=== PATIENT | female | born 1975 | race Caucasian/White ===

== ENCOUNTER 2019-09-16 12:44 | Outpatient (CLI) | payer OTHER, SELFPAY ==
--- NOTE | ~2019-09-16 | MMUS_ITS ---
EXAMINATION: MM diagnostic ismael LT w dashawn, US breast LT limited HISTORY: Palpable lump in the upper outer quadrant of the left breast TECHNIQUE: Craniocaudal, mediolateral, and mediolateral oblique 3-D tomosynthesis images of the left breast were performed and synthetic 2-D images were generated. Spot compression images are also obtai breann. CAD analysis was submitted and interpreted. High resolution limited left breast ultrasound was p erformed. COMPARISON: 01/08/2019, 11/17/2017, 08/31/2016 BREAST PARENCHYMAL COMPOSITION: The breasts are almost entirely fatty. FINDINGS: MAMMOGRAPHIC FINDINGS: There is no evidence of suspicious mass, calcification, or architectural distortion to suggest malig rafael. No mammographic correlate is identified for the reported palpable abnormality. ULTRASOUND: There is no evidence of focal abnormal solid or cystic lesion in the vicinity of the reported palpabl e abnormality of concern. IMPRESSION: 1. No specific mammographic or sonographic correlate is identified for the reported palpable abnormal ity of concern. Further evaluation at this time should be based on clinical assessment. Continued fol low-up physical examination is recommended. 2. Routine screening mammography is recommended, due in December. BI-RADS Category 1: Negative Reviewed, dictated and finalized at location A. IMPRESSION: 1. No specific mammographic or sonographic correlate is identified for the repo rted palpable abnormality of concern. Further evaluation at this time should be based on clinical assessment. Continued follow-up physical examination is elli mmended. 2. Routine screening mammography is recommended, due in December. BI-RADS Category 1: Negative
== END 2019-09-16 12:45 | disposition home or self-care (01) ==
PROVIDERS: PCP Family Medicine; Visit Provider Student in an Organized Health Care Education/Training Program
DX: N63.20 Unspecified lump in the left breast, unspecified quadrant (principal); R92.2 Inconclusive mammogram
CPT/HCPCS: 76642; 77061; 77065; G0279

== ENCOUNTER 2019-10-22 07:47 | Emergency (ER) | payer OTHER, SELFPAY ==
--- NOTE | ~2019-10-22 | CT_ITS ---
EXAMINATION: CT abdomen pelvis wo con DATE: 10/22/2019 08:21 INDICATION: Right flank pain. TECHNIQUE: Computed tomography (CT) of the abdomen and pelvis was performed without intravenous contr ast. Automated exposure control and iterative reconstruction technique were employed. The dose-length product was 954.66 mGy-cm. COMPARISON: CT abdomen and pelvis 04/05/2017 FINDINGS: The visualized portions of the lung bases demonstrate mild atelectasis. No pleural effusion . The heart size is normal. No pericardial effusion. The liver, gallbladder, spleen, pancreas, and ad renal glands are normal. There is mild right hydronephrosis and hydroureter. There is a 4 mm stone in distal right ureter. Left kidney is normal. There are no dilated loops of bowel. The appendix is nor mal. There are no pathologically enlarged lymph nodes. There is no free intraperitoneal fluid. There is mild lumbar spondylosis. IMPRESSION: 1. 4 mm stone in distal right ureter with mild right hydronephrosis and hydroureter. Reviewed, dictated and finalized at location A. IMPRESSION: 1. 4 mm stone in distal right ureter with mild right hydronephrosis and hydrour eter.
--- NOTE | ~2019-10-22 | XR_ITS ---
XR abdomen/kub 1V DATE: 10/22/2019 08:46 INDICATION: Right flank pain, nausea. Kidney stone. TECHNIQUE: AP projection, 2 views COMPARISON: 10/22/[address] abdomen pelvis FINDINGS: A small faint calcification overlies the right distal ureter/ureterovesical junction area, consistent with 10/22/2019 CT-documented distal right ureteral calculus. No other urinary tract calcif ications are detected. The psoas shadows are intact. No visceromegaly is evident. No evidence of bowel obstruction. The lung bases are clear. Normal heart size. IMPRESSION: Distal right ureteral faintly calcified calculus Reviewed, dictated and finalized at Location A. Reviewed, dictated and finalized at location B.
[2019-10-22 07:51] VITALS: BP 150/100; PULSE 74; RESP 18; TEMP 36.1; O2SAT 99
--- NOTE | 2019-10-22 08:01 | ED.ABDPAIN ---
HPI - Abdominal Pain General Chief Complaint: Abdominal Pain Stated Complaint: poss kidney stone Time Seen by Provider: 10/22/19 07:52 Source: RN notes reviewed History of Present Illness HPI narrative: Patient presents emergency department from home for abdominal pain. Patient states symptoms began approximately 1 hour ago. The pain is located in the right flank and radiates into the right abdomen. Described as sharp and stabbing. Patient states is associated with nausea as well as difficulty with urinating. She denies any fevers or chills chest pain, shortness of breath vomiting diarrhea or any other symptoms. States she took no previous pain medication for the symptoms. Related Data Home Medications Medication Instructions Recorded Confirmed albuterol sulfate 90 mcg/actuation 2 inhalation INHALATION Q4-6H PRN 08/31/19 breath activated powder inhaler diphenhydramine HCl 25 mg capsule See Rx Instructions PO TID PRN cap 08/31/19 escitalopram oxalate 10 mg tablet 10 mg PO DAILY 08/31/19 ibuprofen 800 mg tablet 800 mg PO TID 08/31/19 melatonin 5 mg capsule mg PO 08/31/19 pseudoephedrine HCl 30 mg tablet 60 mg PO Q4-6H PRN tablet 08/31/19 tretinoin 0.01 % topical gel 1 applic TOPICAL ONCE 08/31/19 Allergies Allergy/AdvReac Type Severity Reaction Status Date / Time adhesive Allergy Unknown Rash Verified 10/22/19 07:57 egg Allergy Unknown Itching Verified 10/22/19 07:57 mold Allergy Unknown Other Verified 10/22/19 07:57 Review of Systems Review of Systems: Narrative: Gen.: Denies fevers or chills ENT: Denies congestion Respiratory: Denies shortness of breath or cough CV: Denies chest pain or palpitations GI: See HPI reports difficulty with urinating Musculoskeletal: Denies back pain or muscle pain Neuro: Denies numbness, tingling, weakness or focal weakness Skin: Denies rash Except as documented, all other systems reviewed and negative PMFSH Past Medical History Medical History Asthma Endometriosis Thyroid disease Vaginal delivery x 2 Social History Social History Smoking status: Never smoker Alcohol intake: never Exam Narrative: Exam Narrative: APPEARANCE: No acute distress, nontoxic, resting in bed HEENT: Normocephalic, atraumatic, OMM RESPIRATORY: No respiratory distress, clear to auscultation bilaterally with no rhonchi wheezing or rales CARDIOVASCULAR: RRR s murmur ABDOMINAL: Soft, nondistended, tender palpation right upper quadrant right lower quadrant, no tenderness left lower quadrant left lower quadrant, no rebound or guarding, right flank tenderness MUSCULOSKELETAl: Moves all extremities. No clubbing, cyanosis or edema. NEURO: Awake and alert. Following commands, speech normal, no focal deficits SKIN:: Warm, dry. Normal Color PSYCHIATRIC: Normal affect/mood Course Course Emergency Course: Patient that she is feeling better at this time Discussed with patient results of workup and diagnosis. Discussed need for follow-up with primary care, proper use of medication, and reasons to return to the emergency department. Patient understands and agrees to current treatment plan Vital Signs Vital signs: Vital Signs Temperature 97.0 F L 10/22/19 07:51 Pulse Rate 74 10/22/19 07:51 Respiratory Rate 18 10/22/19 07:51 Blood Pressure 150/100 H 10/22/19 07:51 Pulse Oximetry 99 10/22/19 07:51 Temperature 97.0 F L 10/22/19 07:51 Pulse Rate 74 10/22/19 07:51 Respiratory Rate 18 10/22/19 07:51 Blood Pressure 150/100 H 10/22/19 07:51 Pulse Oximetry 99 10/22/19 07:51 MDM - Abdominal Pain MDM Narrative Medical decision making narrative: Patient's abdomen is soft without significant pain or signs of surgical abdomen on serial exams. Lab and x-ray evaluations are reviewed and patient is felt to be a reasonable candidate for outpatient management. Corinne
[2019-10-22] MEDS: SODIUM CHLORIDE 0.9% IV 1,000 ML 999 ML IV CONT (08:06)
[2019-10-22] MEDS: ONDANSETRON INJ 4 MG/2 ML VIAL IV PUSH (08:07)
[2019-10-22 08:20] LABS: Basophils Absolute Auto 0.1 K/mm3 (0.0-0.1); Basophils Percent Auto 0.6 % (0.2-1.2); Eosinophils Absolute Auto 0.2 K/mm3 (0-0.3); Eosinophils Percent Auto 2.2 % (0-4.4); Hemoglobin 12.9 g/dL (12.0-15.0); Immature Granulocyte Absolute 0.03 K/mm3 (0.00-0.031); Immature Granulocyte Percent A 0.3 % (0-0.5); Lymphocytes Absolute Auto 2.27 K/mm3 (0.9-3.2); Lymphocytes Percent Auto 26.4 % (18.3-44.2); Mean Corpuscular HGB Conc 33.1 g/dl (32-36); Mean Corpuscular Hemoglobin 29.5 pg (26-34); Mean Corpuscular Volume 89.2 fl (80-100); Monocytes Absolute Auto 0.6 K/mm3 (0.1-0.6); Monocytes Percent Auto 6.6 % (2.6-8.5); Neutrophils Absolute Auto 5.5 K/mm3 (1.3-6.7); Neutrophils Percent Auto 63.9 % (45.5-73.1); Platelet Count Result 364 k/mm3 (150-375); Red Blood Count 4.37 M/mm3 (4.2-5.4); Red Cell Distribution Width 13.8 % (11.5-14.5); White Blood Count 8.6 K/mm3 (4.5-10.0)
[2019-10-22 08:31] LABS: Alanine Aminotransferase 16 U/L (4-35); Alkaline Phosphatase 96 U/L (38-126); Anion Gap 12.9 mmol/L (7-16); Aspartate Amino Transferase 19 U/L (14-36); Bilirubin,Total 0.8 mg/dL (0.2-1.3); Blood Urea Nitrogen 10 mg/dL (7-17); Calcium 8.6 mg/dL (8.4-10.2); Carbon Dioxide 24 mmol/L (22-30); Chloride 102 mmol/L (98-107); Estimated CRCL calculation 99 ml/min; Estimated Glomerular Filt Rate > 60; Glucose 112 mg/dL (65-105); Lipase 36 U/L (23-300); Potassium 3.9 mmol/L (3.4-5.0); Sodium 135 mmol/L (137-145)
[2019-10-22] MEDS: KETOROLAC 30 MG/ML VIAL (*BKC) IV PUSH (09:35)
[2019-10-22 09:41] LABS: Add Urine Microscopic? YES; Appearance Urine Clear (Clear); Bacteria Urine Trace /hpf; Bilirubin Urine Negative (Negative); Blood Urine 3+ (Negative); Color Urine Yellow (Yellow); Glucose Urine UA Negative (Negative); Ketones Urine Negative (Negative); Leukocyte Esterase Ur Negative LEU/UL (Negative); Mucus Urine Rare /lpf; Nitrate Urine Negative (Negative); Protein Urine Negative (Negative); Specific Grav Ur 1.019 (1.001-1.035); Squamous Epithelial Cell Urine Occasional /hpf (Few); Urobilinogen Urine Negative mg/dL (<2.0); WBC Urine 0-3 /hpf
[2019-10-22] MEDS: TAMSULOSIN HCL 0.4 MG CAPSULE PO (09:55)
[2019-10-22 10:00] VITALS: BP 146/70; PULSE 75; RESP 18; O2SAT 100
== END 2019-10-22 10:04 | disposition home or self-care (01) ==
PROVIDERS: Emergency Provider Emergency Medicine; PCP Family Medicine
DX: N13.2 Hydronephrosis with renal and ureteral calculous obstruction (principal); J45.909 Unspecified asthma, uncomplicated; N80.9 Endometriosis, unspecified; E07.9 Disorder of thyroid, unspecified
CPT/HCPCS: 36415; 74018; 74176; 80053; 81001; 83690; 85025; 96361; 96374; 96375; 99284; A9270; J0131; J1885; J2405; J7030

== ENCOUNTER 2019-11-23 08:41 | Outpatient (CLI) | payer OTHER, SELFPAY ==
--- NOTE | ~2019-11-23 | XR_ITS ---
EXAMINATION: XR abdomen/kub 1V DATE: 11/23/2019 08:59 INDICATION: Right ureteral stone. TECHNIQUE: A supine view of the abdomen on 2 radiographs was obtained. COMPARISON: CT abdomen and pelvis 10/22/2019 FINDINGS: There are no dilated loops of bowel. There are phleboliths in left pelvis. IMPRESSION: 1. No visible urolithiasis. Reviewed, dictated and finalized at location B. IMPRESSION: 1. No visible urolithiasis.
== END 2019-11-23 08:42 | disposition home or self-care (01) ==
PROVIDERS: PCP Family Medicine; Visit Provider Urology
DX: N20.1 Calculus of ureter (principal)
CPT/HCPCS: 74018

== ENCOUNTER 2019-12-14 07:39 | Emergency (ER) | payer OTHER, SELFPAY ==
--- NOTE | ~2019-12-14 | CT_ITS ---
EXAMINATION: CT abdomen pelvis w con EXAM DATE: 12/14/2019 08:38 INDICATION: Abdominal pain, nausea, history of kidney stones. TECHNIQUE: Spiral CT of the abdomen and pelvis was performed following intravenous injection of 100 m L Omnipaque 350. Axial, coronal and sagittal images were reviewed. The dose-length product (DLP) fo r this examination was 971.67 mGy-cm. The exposure was tailored according to patient size (auto mA e xposure control), and iterative reconstruction (ASIR) was used as additional dose reduction technique . Comparison is made to prior examination from 10/22/2019. FINDINGS: The liver, spleen, adrenal glands and pancreas are unremarkable. Gallbladder is unremarkab le. No biliary obstruction. There is a 3 mm stone in the distal aspect of the right ureter, 1 cm fr om the UVJ with mild right hydroureteronephrosis, no perinephric fat stranding. No other nephrolithia sis. Potentially could be the same stone which was present on prior CT scan, if so could be intermitt ently obstructing. The uterus is not identified and has likely been surgically resected. The bladder is unremarkable. There is no retroperitoneal or pelvic lymphadenopathy. The appendix is normal. The stomach and small bowel are unremarkable. There is expected amount of c olonic stool. No free intraperitoneal gas. The heart is normal in size. There are no pericardial or pleural effusions. The lung bases are unremarkable. There are no osteoblastic or osteolytic les ions identified. IMPRESSION: 1. Right distal ureteral 3 mm stone, mild hydroureteronephrosis. Reviewed, dictated and finalized at location A.
[2019-12-14 07:48] VITALS: BP 153/97; PULSE 70; RESP 17; TEMP 36.8; O2SAT 99
--- NOTE | 2019-12-14 07:53 | PC.NURSE ---
Pt unable to void at this time, declined straight cath, would like to try to provide u/a sample after a little while.
--- NOTE | 2019-12-14 08:00 | ED.ABDPAIN ---
HPI - Abdominal Pain General Chief Complaint: Abdominal Pain Stated Complaint: abd pain Time Seen by Provider: 12/14/19 07:45 Source: patient Mode of arrival: ambulatory Limitations: no limitations History of Present Illness HPI narrative: This patient is a 44 year old female who presents for right mid abdominal pain starting 3 hours ago. This pain has been constant and nonradiating. She has associated nausea but no vomiting. She has a history of kidney stones but she reports this feels different. She denies fever or chills. She has not taken anything for pain. Related Data Home Medications Medication Instructions Recorded Confirmed albuterol sulfate 90 mcg/actuation 2 inhalation INHALATION Q4-6H PRN 08/31/19 breath activated powder inhaler diphenhydramine HCl 25 mg capsule See Rx Instructions PO TID PRN cap 08/31/19 ibuprofen 800 mg tablet 800 mg PO TID 08/31/19 melatonin 5 mg capsule mg PO 08/31/19 pseudoephedrine HCl 30 mg tablet 60 mg PO Q4-6H PRN tablet 08/31/19 tretinoin 0.01 % topical gel 1 applic TOPICAL ONCE 08/31/19 Allergies Allergy/AdvReac Type Severity Reaction Status Date / Time adhesive Allergy Unknown Rash Verified 12/14/19 07:40 egg Allergy Unknown Itching Verified 12/14/19 07:40 mold Allergy Unknown Other Verified 12/14/19 07:40 Review of Systems Review of Systems: All systems reviewed & are unremarkable except as noted in HPI and below Constitutional: Constitutional: Denies chills and Denies fever(s) Respiratory: Respiratory: Denies cough and Denies dyspnea Gastrointestinal: Gastrointestinal: Reports abdominal pain, Reports nausea and Denies vomiting [facility] Past Medical History Medical History (Updated 12/14/19 @ 09:27 by Sabina Waldrop MD) Asthma Endometriosis History of nephrolithiasis Thyroid disease Vaginal delivery x 2 Surgical History Surgical History H/O total hysterectomy with bilateral salpingo-oophorectomy (BSO) History of laparoscopy [place] teeth removed Social History Social History Smoking status: Never smoker Alcohol intake: never Gender identity (if verbalized by the patient): Female Exam Const: General: alert Orientation/consciousness: patient oriented x3 HENMT: Head: normocephalic and atraumatic Face and sinus: face symmetric Mouth: Yes Normal oral and palatal mucosa present, Yes lip normal, Yes oropharynx normal and Yes moist mucous membranes Eyes: EOM: EOMs intact bilaterally Resp: Effort & Inspection: normal respiratory effort and no retractions Auscultation: clear to auscultation bilaterally GI: GI Palp: Yes Soft to palpation, No Tenderness to palpation present (GI), No Guarding due to palpation present (GI), No Rigid due to palpation and No Hernia present : General: Yes no CVA tenderness Skin: General skin exam: normal color Rashes: no rashes Neuro: General: patient oriented x3 and moves all extremities Extrem: General: normal to inspection and no pedal edema Course Reevaluation(s) Reevaluation #1: Patient reports her pain has resolved. I discussed CT shows distal stone so maybe passed stone. She denies any other questions or concerns. Date: 12/14/19 Time: 09:25 Vital Signs Vital signs: Vital Signs Temperature 98.2 F 12/14/19 07:48 Pulse Rate 70 12/14/19 07:48 Respiratory Rate 17 12/14/19 07:48 Blood Pressure 153/97 H 12/14/19 07:48 Pulse Oximetry 99 12/14/19 07:48 Temperature 98.2 F 12/14/19 07:48 Pulse Rate 71 12/14/19 09:44 Respiratory Rate 14 12/14/19 09:44 Blood Pressure 129/81 12/14/19 09:44 Pulse Oximetry 100 12/14/19 09:44 MDM - Abdominal Pain Lab Data Attestation: I reviewed the patient's lab results. Result diagrams: 12/14/19 07:58 12/14/19 07:58 Labs: Lab Results 12/14/19 12/14/19 12/14/19 Range/Units
[2019-12-14 08:05] LABS: Basophils Percent Auto 0.4 % (0.2-1.2); Eosinophils Absolute Auto 0.1 K/mm3 (0-0.3); Eosinophils Percent Auto 1.7 % (0-4.4); Hematocrit 43.7 % (37.0-47.0); Hemoglobin 14.4 g/dL (12.0-15.0); Immature Granulocyte Absolute 0.04 K/mm3 (0.00-0.031); Immature Granulocyte Percent A 0.5 % (0-0.5); Lymphocytes Absolute Auto 2.37 K/mm3 (0.9-3.2); Lymphocytes Percent Auto 30.3 % (18.3-44.2); Mean Corpuscular Hemoglobin 29.2 pg (26-34); Mean Corpuscular Volume 88.6 fl (80-100); Mean Platelet Volume 9.9 fl (7.4-10.4); Monocytes Absolute Auto 0.5 K/mm3 (0.1-0.6); Monocytes Percent Auto 6.9 % (2.6-8.5); Neutrophils Absolute Auto 4.7 K/mm3 (1.3-6.7); Neutrophils Percent Auto 60.2 % (45.5-73.1); Platelet Count Result 347 k/mm3 (150-375); Red Blood Count 4.93 M/mm3 (4.2-5.4); Red Cell Distribution Width 13.4 % (11.5-14.5); White Blood Count 7.8 K/mm3 (4.5-10.0)
[2019-12-14 08:16] LABS: Alanine Aminotransferase 17 U/L (4-35); Albumin Level 4.1 g/dL (3.5-5.1); Alkaline Phosphatase 93 U/L (38-126); Anion Gap 9 mmol/L (8-16); Aspartate Amino Transferase 19 U/L (14-36); Bilirubin,Total 0.9 mg/dL (0.2-1.3); Blood Urea Nitrogen 11 mg/dL (7-17); Calcium 8.7 mg/dL (8.4-10.2); Carbon Dioxide 25 mmol/L (22-30); Chloride 104 mmol/L (98-107); Estimated CRCL calculation 88 ml/min; Estimated Glomerular Filt Rate > 60; Glucose 102 mg/dL (65-105); Lipase 30 U/L (23-300); Potassium 3.9 mmol/L (3.4-5.0); Sodium 138 mmol/L (137-145)
[2019-12-14] MEDS: ONDANSETRON INJ 4 MG/2 ML VIAL IV PUSH (08:16)
[2019-12-14] MEDS: LACTATED RINGERS 1,000 ML 999 ML IV CONT (08:17)
--- NOTE | 2019-12-14 08:26 | PC.NURSE ---
pt unable to provide u/a at this time, will try again later
[2019-12-14 08:52] VITALS: BP 118/76; PULSE 85; RESP 15; O2SAT 97
[2019-12-14 08:59] LABS: Add Urine Microscopic? NO; Appearance Urine Clear (Clear); Bilirubin Urine Negative (Negative); Blood Urine Negative (Negative); Color Urine Straw (Yellow); Glucose Urine UA Negative (Negative); Ketones Urine Negative (Negative); Leukocyte Esterase Ur Negative LEU/UL (Negative); Nitrate Urine Negative (Negative); Protein Urine Negative (Negative); Urobilinogen Urine Negative mg/dL (<2.0)
[2019-12-14 09:01] LABS: Specific Grav Ur 1.046 (1.001-1.035)
[2019-12-14] MEDS: TAMSULOSIN HCL 0.4 MG CAPSULE PO (09:05)
[2019-12-14 09:44] VITALS: BP 129/81; PULSE 71; RESP 14; O2SAT 100
== END 2019-12-14 09:45 | disposition home or self-care (01) ==
PROVIDERS: Emergency Provider General Practice; PCP Family Medicine
DX: N13.2 Hydronephrosis with renal and ureteral calculous obstruction (principal); J45.909 Unspecified asthma, uncomplicated; Z87.442 Personal history of urinary calculi
CPT/HCPCS: 36415; 74177; 80053; 81003; 83690; 85025; 96361; 96365; 96375; 99284; A9270; J0131; J1170; J2405; J7120; Q9967

== ENCOUNTER 2020-03-08 12:28 | Outpatient (CLI) | payer OTHER, SELFPAY ==
--- NOTE | ~2020-03-08 | MM_ITS ---
EXAMINATION: MM screening ismael BI w dashawn HISTORY: Screening TECHNIQUE: Craniocaudal and mediolateral oblique 3-D tomosynthesis images were obtained and synthetic 2-D images were generated. CAD analysis was submitted and interpreted. COMPARISON: Comparison to multiple prior studies sequentially, with oldest reviewed study dated 09/2015. BREAST PARENCHYMAL COMPOSITION: There are scattered areas of fibroglandular density. FINDINGS: There is no evidence of suspicious mass, calcification, or architectural distortion to sugg est malignancy in either breast. There has been no suspicious interval change. IMPRESSION: 1. No mammographic evidence of malignancy. 2. Recommend routine screening mammography in one year. BI-RADS Category 1: Negative Reviewed, dictated and finalized at location D. 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
== END 2020-03-08 12:29 | disposition home or self-care (01) ==
LOC: ANHIMG 12:31
PROVIDERS: PCP Family Medicine; Visit Provider Student in an Organized Health Care Education/Training Program
DX: Z12.31 Encounter for screening mammogram for malignant neoplasm of breast (principal)
CPT/HCPCS: 77063; 77067

== ENCOUNTER 2020-03-28 14:19 | Outpatient (CLI) | payer OTHER, SELFPAY ==
--- NOTE | ~2020-03-28 | DEXA_ITS ---
Bone Density Report Name: Elsy Ching Age: 44 Sex: Female Ethnicity: White Date of : 1975 Indication: postmenopausal; asthma or emphysema; hysterectomy; Referring Provider: YURIDIA SALINAS Study: Bone densitometry was performed. Exam Date: March 28, 2020 Accession number: [id number] Bone Density: Region BMD T-score Z-score Classification AP Spine (L1-L4) 1.117 0.6 1.0 Normal Femoral Neck (Left) 0.686 -1.5 -1.1 Osteopenia Total Hip (Left) 0.948 0.1 0.3 Normal Total Hip Bilateral Avg 0.947 0.1 0.3 Normal Femoral Neck (Right) 0.723 -1.1 -0.8 Osteopenia Total Hip (Right) 0.945 0.0 0.3 Normal World Health Organization criteria for BMD impression classify patients as: Normal (T-score at or above -1.0), Osteopenia (T-score between -1.0 and -2.5), or Osteoporosis (T-score at or below -2.5). 10-year Fracture Risk(1): Major Osteoporotic Fracture 2.6% Hip Fracture 0.2% Reported Risk Factors: [place] (), Neck BMD=0.686, BMI=30.0 (1) FRAX(R) Version 3.08. Fracture probability calculated for an untreated patient. Fracture probability may be lower if the patient has received treatment. Clinical Information Provided by Patient: Has used the following medications: HRT (i.e. estrogen/hormone therapy), Vitamin D, Calcium Has the following medical conditions: Asthma or Emphysema, Hysterectomy Patient maximum height was 65 Menopause Age: 42 Onset of menses at age 13 Number of children 2 Impression: The patient has low bone mass, based on the Left Femoral Neck T-score. The patient has an estimated ten-year risk of hip fracture of 0.2% and an estimated ten-year risk of major fracture of 2.6%, based on the WHO FRAX algorithm. Discussion: BONE DENSITY IS LOW AT ONE OR MORE SKELETAL SITES. This patient's lowest T-score is low at one or more skeletal sites. It meets the World Health Organization's (WHO) criteria for ?low bone mass? (T-score between -1.0 and -2.5). The patient's 10-year risk of fracture as calculated by FRAX is less than the threshold where pharmacological therapy is recommended by the National Osteoporosis Foundation (NOF). However, all treatment decisions require clinical judgment and consideration of individual patient factors, including patient preferences, comorbidities, previous drug use, risk factors not captured in the FRAX model (e.g., frailty, falls, vitamin D deficiency, increased bone turnover, interval significant decline in bone density) and possible under or overestimation of fracture risk by FRAX. The patient should follow a healthful lifestyle (good nutrition with adequate calcium and vitamin D, and appropriate weight-bearing exercise). Follow-Up: Consider repeating this study in 2 to 3 years to reassess this patient's status, or sooner if there is some new clini
== END 2020-03-28 14:20 | disposition home or self-care (01) ==
PROVIDERS: PCP Family Medicine; Visit Provider Family Medicine
DX: N95.1 Menopausal and female climacteric states (principal); M85.852 Other specified disorders of bone density and structure, left thigh; M85.851 Other specified disorders of bone density and structure, right thigh
CPT/HCPCS: 77080

== ENCOUNTER 2020-04-25 07:53 | Outpatient (CLI) | payer OTHER, SELFPAY ==
--- NOTE | ~2020-04-25 | CT_ITS ---
EXAMINATION: CT abdomen pelvis wo con DATE: 04/25/2020 08:19 INDICATION: Right ureteral stone TECHNIQUE: Computed tomography (CT) of the abdomen and pelvis was performed without intravenous contr ast. Automated exposure control and iterative reconstruction technique were employed. The dose-length product was 259.21 mGy-cm. COMPARISON: 12/14/2019 FINDINGS: Mild discoid atelectasis in the right middle lobe and lingula. Heart size is normal. No pericardial o r pleural effusion. Liver, gallbladder, spleen, pancreas, bilateral adrenal glands and kidneys are no rmal. No hydronephrosis or stones at the kidneys. Unchanged 3 mm stone at the distalmost right ureter within 1 cm of the ureterovesicular junction. A few phleboliths in the left hemipelvis. Decompressed bladder is normal. The uterus is not identified and has likely been surgically resected. Bowels incl uding the appendix are normal. No free intraperitoneal gas or fluid. No pathologically enlarged abdom inal or pelvic lymphadenopathy. Tiny fat-containing umbilical hernia. Minimal scattered degenerative skeletal changes. IMPRESSION: 1. Unchanged 3 mm stone in the distalmost right ureter without hydronephrosis or hydroureter. Reviewed, dictated and finalized at location B. 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 Unchanged 3 mm stone in the distalmost right ureter without hydronephrosis o r hydroureter.
--- NOTE | ~2020-04-25 | XR_ITS ---
EXAMINATION: XR abdomen/kub 1V DATE: 04/25/2020 08:15 INDICATION: Right ureteral stone. TECHNIQUE: A supine view of the abdomen on 2 radiographs was obtained. COMPARISON: CT abdomen and pelvis 04/25/2020 FINDINGS: There are no dilated loops of bowel. There are phleboliths in the pelvis. There is a 3 mm s tone in distal right ureter. IMPRESSION: 1. 3 mm stone in distal right ureter. Reviewed, dictated and finalized at location A. 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
== END 2020-04-25 07:54 | disposition home or self-care (01) ==
PROVIDERS: PCP Family Medicine; Visit Provider Urology
DX: N20.1 Calculus of ureter (principal)
CPT/HCPCS: 74018; 74176

== ENCOUNTER 2020-05-07 05:38 | Day surgery (SDC) | payer OTHER, SELFPAY ==
[2020-05-07] VITALS (10 sets, daily range): BP systolic 93–134; BP diastolic 64–95; PULSE 62–89; RESP 14–20; TEMP 36.5–36.7; O2SAT 97–100
--- NOTE | ~2020-05-07 | XR_ITS ---
EXAMINATION: XR abdomen/kub 1V DATE: 05/07/2020 08:13 INDICATION: Right ureteral stone. TECHNIQUE: A supine view of the abdomen on 2 radiographs was obtained. COMPARISON: CT abdomen and pelvis 05/07/2020 FINDINGS: There are no dilated loops of bowel. The distal right ureter is obscured by bowel. There ar e phleboliths in left pelvis. IMPRESSION: 1. No visible urolithiasis. Reviewed, dictated and finalized at location A. CTOR COMMUNICATIONS IMPRESSION: 1. No visible urolithiasis.
--- NOTE | ~2020-05-07 | XR_ITS ---
EXAMINATION: XR retrograde pyelogram RT DATE: 05/07/2020 09:30 INDICATION: Right ureteral stone. TECHNIQUE: 21 intraoperative fluoroscopic views of the abdomen and pelvis were obtained. I was not pr esent. Fluoroscopy exposure time was 20 seconds. COMPARISON: CT abdomen and pelvis 05/07/2020 FINDINGS: The right-sided retrograde pyelogram demonstrates mild hydronephrosis. IMPRESSION: 1. Mild right hydronephrosis. Reviewed, dictated and finalized at location A. OM LOADER
--- NOTE | ~2020-05-07 | CT_ITS ---
EXAMINATION: CT abdomen pelvis wo con DATE: 05/07/2020 06:19 INDICATION: Right flank pain. TECHNIQUE: Computed tomography (CT) of the abdomen and pelvis was performed without intravenous contr ast. Automated exposure control and iterative reconstruction technique were employed. The dose-length product was 501.02 mGy-cm. COMPARISON: CT abdomen and pelvis 04/25/2020 FINDINGS: The visualized portions of the lung bases demonstrate mild atelectasis. No pleural effusion . The heart size is normal. No pericardial effusion. There is an 8 mm cyst in the liver. The gallblad bridger, spleen, pancreas, adrenal glands, and left kidney are normal. There is mild right hydronephrosis and hydroureter. There is a 4 mm stone at right ureterovesicular junction. There are no dilated loop s of bowel. The appendix is normal. There are no pathologically enlarged lymph nodes. There is no bina e intraperitoneal fluid. There is mild thoracolumbar spondylosis. IMPRESSION: 1. 4 mm stone at right ureterovesicular junction with mild right hydronephrosis and hydroureter. Reviewed, dictated and finalized at location A. UNLOADER
[2020-05-07] MEDS: SODIUM CHLORIDE 0.9% IV 1,000 ML 999 ML IV CONT ×2 (06:07→06:56)
[2020-05-07] MEDS: ONDANSETRON INJ 4 MG/2 ML VIAL IV PUSH (06:07)
[2020-05-07] MEDS: KETOROLAC 30 MG/ML VIAL (*BKC) IV PUSH (06:07)
--- NOTE | 2020-05-07 06:14 | ED.GENADULT ---
HPI - General Adult General Chief complaint: Urogenital-Female Stated complaint: Right flank pain, kidney stone Time Seen by Provider: 05/07/20 05:59 History of Present Illness HPI narrative: Patient is a 44-year-old female with history of kidney stones who presents ER with concern for passage of kidney stone. Started having some right mid abdominal pain 6 days ago. It was short-lived. She then had recurrence couple days ago and then again today. Pain has waves of nausea with that. No vomiting. No urinary frequency or urgency. She has been without dysuria/hematuria. No fevers or chills or sweats. Follows with Dr. Tang. Related Data Home Medications Medication Instructions Recorded Confirmed albuterol sulfate 90 mcg/actuation 2 inhalation INHALATION Q4-6H PRN 08/31/19 02/08/20 breath activated powder inhaler diphenhydramine HCl 25 mg capsule See Rx Instructions PO TID PRN cap 08/31/19 02/08/20 melatonin 5 mg capsule mg PO 08/31/19 02/08/20 pseudoephedrine HCl 30 mg tablet 60 mg PO Q4-6H PRN tablet 08/31/19 02/08/20 tretinoin 0.01 % topical gel 1 applic TOPICAL ONCE 08/31/19 02/08/20 Allergies Allergy/AdvReac Type Severity Reaction Status Date / Time adhesive Allergy Unknown Rash Verified 05/07/20 05:47 egg Allergy Unknown Itching Verified 05/07/20 05:47 mold Allergy Unknown Other Verified 05/07/20 05:47 Review of Systems Review of Systems: All systems reviewed & are unremarkable except as noted in HPI and below Constitutional: Constitutional: Denies chills, Denies fever(s) and Denies weakness Gastrointestinal: Gastrointestinal: Reports abdominal pain, Reports nausea and Denies vomiting Genitourinary: Genitourinary: Denies hematuria, Denies nocturia, Denies dysuria and Reports flank pain PMFSH Past Medical History Medical History (Updated 05/07/20 @ 07:04 by Lonnie Sanches MD) Asthma Endometriosis History of nephrolithiasis Thyroid disease Vaginal delivery x 2 Surgical History Surgical History H/O total hysterectomy with bilateral salpingo-oophorectomy (BSO) History of laparoscopy [place] teeth removed Family History Family History Father Asthma Grandparent Hypertension Cerebrovascular accident Family history of malignant neoplasm of breast Social History Social History (Updated 02/08/20 @ 10:27 by Johana Montoya) Smoking status: Never smoker Alcohol intake: never Gender identity (if verbalized by the patient): Female Exam Narrative: Exam Narrative: GENERAL: Well-appearing, well-nourished, and in no acute distress. HEAD: Normocephalic, atraumatic. CHEST: Clear to auscultation. No respiratory distress. HEART: Regular rate and rhythm. Normal peripheral pulses. ABDOMEN: Soft, nontender, nondistended. EXTREMITIES: Normal range of motion. No edema. NEURO: Alert and oriented x3. PSYCH: Normal mood and affect. Course Reevaluation(s) Reevaluation #1: Discussed case with Dr. Tang. He will take a look at the images. It appears patient has a stone at the UVJ entering the bladder with increased hydronephrosis compared to previous imaging. Patient's pain is not controlled with Toradol. We will give her morphine as well as additional liter of fluid trying to propel the stone into the bladder. Patient has not had anything to eat or drink since 7 PM yesterday evening. She may go to the OR today. Dr. Block will call back with his ultimate plan. Date: 05/07/20 Time: 06:55 Reevaluation #2: Patient still quite uncomfortable. We will plan for operative extraction of stone today. Patient will remain n.p.o. Date: 05/07/20 Time: 07:04 Vital Signs Vital signs: Vital Signs Temperature 98.0 F 05/07/20 05:44 Pulse Rate 66 05/07/20 05:44 Respiratory Rate 20 05/07/20 05:44 Blood Pressure 132/95 H 05/07/20 05:44 Pulse Oximetry 100 05/07/20 05:44
[2020-05-07 06:21] LABS: Basophils Percent Auto 0.3 % (0.2-1.2); Eosinophils Absolute Auto 0.2 K/mm3 (0-0.3); Eosinophils Percent Auto 2.5 % (0-4.4); Hemoglobin 14.1 g/dL (12.0-15.0); Immature Granulocyte Absolute 0.03 K/mm3 (0.00-0.031); Immature Granulocyte Percent A 0.5 % (0-0.5); Lymphocytes Absolute Auto 2.42 K/mm3 (0.9-3.2); Lymphocytes Percent Auto 37.2 % (18.3-44.2); Mean Corpuscular HGB Conc 32.8 g/dl (32-36); Mean Corpuscular Hemoglobin 29.3 pg (26-34); Mean Corpuscular Volume 89.4 fl (80-100); Mean Platelet Volume 10.2 fl (7.4-10.4); Monocytes Absolute Auto 0.4 K/mm3 (0.1-0.6); Monocytes Percent Auto 6.2 % (2.6-8.5); Neutrophils Absolute Auto 3.5 K/mm3 (1.3-6.7); Neutrophils Percent Auto 53.3 % (45.5-73.1); Platelet Count Result 296 k/mm3 (150-375); Red Blood Count 4.81 M/mm3 (4.2-5.4); Red Cell Distribution Width 13.6 % (11.5-14.5); White Blood Count 6.5 K/mm3 (4.5-10.0)
[2020-05-07 06:26] LABS: Add Urine Microscopic? NO; Appearance Urine Clear (Clear); Bilirubin Urine Negative (Negative); Blood Urine Negative (Negative); Color Urine Colorless (Yellow); Glucose Urine UA Negative (Negative); Ketones Urine Negative (Negative); Leukocyte Esterase Ur Negative LEU/UL (Negative); Nitrate Urine Negative (Negative); Protein Urine Negative (Negative); Squamous Epithelial Cell Urine Occasional /hpf (Few); Urobilinogen Urine Negative mg/dL (<2.0); WBC Urine 0-3 /hpf
[2020-05-07 06:34] LABS: Specific Grav Ur 1.002 (1.001-1.035)
[2020-05-07 06:35] LABS: Anion Gap 5 mmol/L (8-16); Blood Urea Nitrogen 12 mg/dL (7-17); Calcium 8.8 mg/dL (8.4-10.2); Carbon Dioxide 31 mmol/L (22-30); Chloride 102 mmol/L (98-107); Estimated Glomerular Filt Rate > 60; Glucose 94 mg/dL (65-105); Potassium 3.8 mmol/L (3.4-5.0); Sodium 138 mmol/L (137-145)
[2020-05-07] MEDS: MORPHINE SULFATE (*CRX) 4 MG/ML INJ IV PUSH (06:50)
--- NOTE | 2020-05-07 07:54 | WPDANESEPP ---
Anes - Eval Pre Procedure Date/Time: 05/07/20 07:54 Pre Op Diagnosis: Right flank pain, kidney stone Patient Data Age: 44 Gender: F Height: Weight: Last Vital Signs Temp 36.7 C 05/07/20 07:20 Pulse 62 05/07/20 06:55 Resp 18 05/07/20 06:55 BP 134/93 H 05/07/20 06:55 Pulse Ox 100 05/07/20 06:55 Allergies Allergy/AdvReac Type Severity Reaction Status Date / Time adhesive Allergy Unknown Rash Verified 05/07/20 05:47 egg Allergy Unknown Itching Verified 05/07/20 05:47 mold Allergy Unknown Other Verified 05/07/20 05:47 Home Medications Medication Instructions Recorded Confirmed Type albuterol sulfate 90 mcg/actuation 2 inhalation INHALATION Q4-6H PRN 08/31/19 02/08/20 History breath activated powder inhaler diphenhydramine HCl 25 mg capsule See Rx Instructions PO TID PRN cap 08/31/19 02/08/20 History melatonin 5 mg capsule mg PO 08/31/19 02/08/20 History pseudoephedrine HCl 30 mg tablet 60 mg PO Q4-6H PRN tablet 08/31/19 02/08/20 History ibuprofen [IBU] 600 mg PO Q6H PRN #20 tablet 10/22/19 02/08/20 Rx escitalopram oxalate 20 mg tablet 20 mg PO DAILY #90 tablet 11/22/19 02/08/20 Rx montelukast 10 mg tablet 10 mg PO DAILY #90 tablet 01/25/20 02/08/20 Rx estradiol 1 mg tablet See Rx Instructions .ROUTE 02/22/20 Rx .COMPLEX #90 tablet levothyroxine 100 mcg capsule 100 mcg PO DAILY #90 cap 04/11/20 Rx Calcitrate-Vitamin D 05/07/20 History cyclobenzaprine [Flexeril] 10 mg PO HS PRN 05/07/20 History Laboratory Tests 05/07/20 05/07/20 05/07/20 06:09 06:09 06:09 WBC 6.5 K/mm3 K/mm3 (4.5-10.0) RBC 4.81 M/mm3 M/mm3 (4.2-5.4) Hgb 14.1 g/dL g/dL (12.0-15.0) Hct 43.0 % % (37.0-47.0) MCV 89.4 fl fl (80-100) MCH 29.3 pg pg (26-34) MCHC 32.8 g/dl g/dl (32-36) RDW 13.6 % % (11.5-14.5) Plt Count 296 k/mm3 k/mm3 (150-375) MPV 10.2 fl fl (7.4-10.4) Immature Gran % (Auto) 0.5 % % (0-0.5) Neut % (Auto) 53.3 % % (45.5-73.1) Lymph % (Auto) 37.2 % % (18.3-44.2) Lander % (Auto) 6.2 % % (2.6-8.5) Eos % (Auto) 2.5 % % (0-4.4) Baso % (Auto) 0.3 % % (0.2-1.2) Lymph # (Auto) 2.42 K/mm3 K/mm3 (0.9-3.2) Lander # (Auto) 0.4 K/mm3 K/mm3 (0.1-0.6) Eos # (Auto) 0.2 K/mm3 K/mm3 (0-0.3) Baso # (Auto) 0.0 K/mm3 K/mm3 (0.0-0.1) Abs Immat Gran (auto) 0.03 K/mm3 K/mm3 (0.00-0.031) Absolute Neuts (auto) 3.5 K/mm3 K/mm3 (1.3-6.7) Absolute Nucleated RBC 0.0 K/mm3 K/mm3 (0.0-0.012) Nucleated RBC % 0.0 % % (0.0-0.2) Sodium 138 mmol/L mmol/L (137-145) Potassium 3.8 mmol/L mmol/L (3.4-5.0) Chloride 102 mmol/L mmol/L (98-107) Carbon Dioxide 31 mmol/L H mmol/L (22-30) Anion Gap 5 mmol/L L mmol/L (8-16) BUN 12 mg/dL mg/dL (7-17) Creatinine 0.80 mg/dL mg/dL (0.7-1.0) Estim Creat Clear Calc Not Reportable Estimated GFR > 60 (59 - ) Glucose 94 mg/dL mg/dL (65-105) Calcium 8.8 mg/dL mg/dL (8.4-10.2) Urine Color Colorless (Yellow) Urine Appearance Clear (Clear) Urine pH 6.0 (5.0-9.0) Ur Specific [place] 1.002 (1.001-1.035) Urine Protein Negative mg/dL mg/dL (Negative) Urine Glucose (UA) Negative mg/dL mg/dL (Negative) Urine Ketones Negative mg/dL mg/dL (Negative) Ur Blood (Man) Negative (Negative) Urine Nitrate Negative (Negative) Urine Bilirubin Negative (Negative) Urine Urobilinogen Negative mg/dL mg/dL (<2.0) Leukocyte Esterase Rfl Negative JORDON/UL JORDON/UL (Negative) Urine WBC 0-3 /hpf /hpf Ur Squamous Epith Cells Occasional /hpf /hpf (Few) : patient
--- NOTE | 2020-05-07 08:03 | PC.NURSE ---
Called to room at this time, patient states my pain went from 7 to 3, do you think I passed my stone? Dr. Adam notified and waiting new orders at this time.
--- NOTE | 2020-05-07 08:43 | WPDURCON ---
Assessment and Plan Assessment and plan (1) Right ureteral calculus: Code(s): N20.1 - Calculus of ureter Status: Acute Assessment and Plan: 4mm right distal ureteral stone. -the patient has improvement of her pain with narcotic pain medicine, however has not caught the stone. I discussed options of discharge home versus right ureteroscopy. The patient has had 2 ER visits and agrees to proceed with right ureteroscopy today. She understands the risks, benefits, alternatives. She agrees to proceed with right ureteroscopy, stone extraction, possible stent placement possible laser lithotripsy.. Urology Consult Note HPI Date Seen: 05/07/20 Requesting Physician: Mario Alberto Tang MD Primary Care Provider: Chucho Martin MD Consult Narrative Narrative: Elsy Ching is a 44 year old female with history of stone disease. She has a right distal ureteral stone seen in the office 2 weeks ago. The patient had worsening pain today and presents to the emergency department. Patient has improvement with morphine however has not passed the stone. CT scan shows a 4mm distal stone. She denies fevers chills nausea vomiting or chest pain. Review of Systems Review of Systems: All systems reviewed & are unremarkable except as noted in HPI and below Constitutional: Constitutional: Reports as per HPI [facility] Past Medical History Medical History Asthma Endometriosis History of nephrolithiasis Thyroid disease Vaginal delivery x 2 Surgical History Surgical History H/O total hysterectomy with bilateral salpingo-oophorectomy (BSO) History of laparoscopy [place] teeth removed Family History Family History Father Asthma Grandparent Hypertension Cerebrovascular accident Family history of malignant neoplasm of breast Social History Social History Smoking status: Never smoker Alcohol intake: never Gender identity (if verbalized by the patient): Female Meds Home Medications and Allergies Home Medications Medication Instructions Recorded Confirmed Type albuterol sulfate 90 mcg/actuation 2 inhalation INHALATION Q4-6H PRN 08/31/19 02/08/20 History breath activated powder inhaler diphenhydramine HCl 25 mg capsule See Rx Instructions PO TID PRN cap 08/31/19 02/08/20 History melatonin 5 mg capsule mg PO 08/31/19 02/08/20 History pseudoephedrine HCl 30 mg tablet 60 mg PO Q4-6H PRN tablet 08/31/19 02/08/20 History ibuprofen [IBU] 600 mg PO Q6H PRN #20 tablet 10/22/19 02/08/20 Rx escitalopram oxalate 20 mg tablet 20 mg PO DAILY #90 tablet 11/22/19 02/08/20 Rx montelukast 10 mg tablet 10 mg PO DAILY #90 tablet 01/25/20 02/08/20 Rx estradiol 1 mg tablet See Rx Instructions .ROUTE 02/22/20 Rx .COMPLEX #90 tablet levothyroxine 100 mcg capsule 100 mcg PO DAILY #90 cap 04/11/20 Rx Calcitrate-Vitamin D 05/07/20 History cyclobenzaprine [Flexeril] 10 mg PO HS PRN 05/07/20 History Allergies Allergy/AdvReac Type Severity Reaction Status Date / Time adhesive Allergy Unknown Rash Verified 05/07/20 05:47 egg Allergy Unknown Itching Verified 05/07/20 05:47 mold Allergy Unknown Other Verified 05/07/20 05:47 Vital Signs Vital Signs - 24 hr 05/07/20 05:44 05/07/20 06:55 05/07/20 07:20 Temperature 36.7 C 36.7 C Pulse Rate 66 62 Respiratory Rate 20 18 Blood Pressure 132/95 H 134/93 H Pulse Oximetry 100 100 Exam Const: General: cooperative and no acute distress HENMT: Head: normal to inspection Eyes: General: appearance normal, both eyes and all related structures Resp: Effort & Inspection: normal respiratory effort Back/Spine/Pelvis: Back: no CVA tenderness Results Labs CBC & Chem 7: 05/07/20 06:09 05/07/20 06:09
--- NOTE | 2020-05-07 08:48 | WPDHPUPDATE1 ---
History and Physical Update Update Date/Time: 05/07/20 08:48 History and Physical has been reviewed, including an updated exam of the patient. There are NO changes in the patient's condition. Risks, benefits, and alternatives have been discussed and questions answered. Patient agrees to proceed with procedure.
[2020-05-07] MEDS: ceFAZolin 2 GM/D5W 50 ML 2 GM/50 ML BAG IVPB (09:02)
--- NOTE | 2020-05-07 09:09 | WPDANESEFPP ---
Anes - Eval Final PreProcedure Day of Procedure 05/07/20 09:09 Patient weight: overweight Heart: regular rate and rhythm Lungs: clear to auscultation Airway: Mallampati scale class II Neurological: alert and oriented Last oral intake: >/= 8 hours ASA classification: II Emergent: yes Anesthetic plan: proceed Anesthesia type and monitoring: general LMA and standard monitoring Informed Consent: The patient's anesthetic plan and its attendant risks and benefits were discussed with the patient/family/POA. Questions were solicited and answers provided to the satisfaction of the patient/family/POA.
[2020-05-07] MEDS: LIDOCAINE HCL 2% GEL UROJET 10 ML PKG MUCOUS MEM (09:24)
[2020-05-07] MEDS: LACTATED RINGERS 1,000 ML 30 ML IV CONT (09:32)
--- NOTE | 2020-05-07 09:32 | PM.PROC ---
Procedure Note - Detailed Date of procedure: 05/07/20 Pre-op diagnosis: Right flank pain, kidney stone Post-op diagnosis: same Procedure performed: Cystoscopy, right ureteroscopy, stone extraction, retrograde pyelogram Description of procedure: Informed consent was obtained. Patient to the operating room. She had preoperative IV antibiotics. She she was induced with anesthesia. She was placed in dorsal lithotomy position. She was prepped and draped in normal sterile fashion. We inserted a 22 F rigid cystoscope through the urethra into the bladder and bladder was normal in appearance without mucosal abnormalities. There was no stone seen. We cannulated the right ureteral orifice was dilated with 8-10 coaxial dilator. We inserted a semi rigid ureteral scope distal ureter where a stone was encountered. It was grasped with Zero tip basket removed. The psoas tendon specimen. Then reintroduced the ureteroscope there was some irritation of the intramural tunnel without significant bleeding. Retrograde pyelogram showed moderate hydronephrosis. There was no extravasation. The urine cleared quickly from the ureter. As there was minimal manipulation and prompt clearance of contrast from the ureter would like to not place a stent. The safety wire was removed. 10cc of lidocaine were instilled patient was awakened taken recovery room stable condition Anesthesia: GLMA Surgeon: Mario Alberto Tang MD Drains: No Packing: No Pathology: yes Complications: No immediate complications Condition: stable Disposition: PACU
== END 2020-05-07 10:45 | disposition home health service (06) ==
LOC: ANHED 07:04 → ANHSURGERY 07:19
PROVIDERS: Emergency Provider Emergency Medicine; PCP Family Medicine; Visit Provider Urology
PROC: (CPT 52352; principal; 2020-05-07 08:30)
DX: N13.2 Hydronephrosis with renal and ureteral calculous obstruction (principal); J45.909 Unspecified asthma, uncomplicated; E07.9 Disorder of thyroid, unspecified
CPT/HCPCS: 52352; 36415; 74018; 74176; 74420; 80048; 81003; 82365; 85025; 88300; 96361; 96374; 96375; 99285; A9270; C1769; J0690; J1885; J2250; J2270; J2405; J2704; J3010; J7030; J7120; Q9966

== ENCOUNTER 2020-05-30 07:44 | Outpatient (CLI) | payer OTHER, SELFPAY ==
--- NOTE | ~2020-05-30 | US_ITS ---
EXAMINATION: US retroperitoneal comp EXAM DATE: 05/30/2020 08:28 INDICATION: Right ureteral stone. TECHNIQUE: Multiple grayscale and Doppler images of the kidneys were obtained (by a technologist who performed the scan) and subsequently reviewed. Comparison is made to prior examination from 7. Correlation was made with CT abdomen 05/07/2020. FINDINGS: Right kidney: There is normal contour and echogenicity. It measures 9.5 x 5.4 x 5.9 centimeters. Th ere are no focal renal lesions identified. There is no hydronephrosis. Left kidney: There is normal contour and echogenicity. It measures 9.2 x 6.0 x 4.8 centimeters. The re are no focal renal lesions identified. There is no hydronephrosis. Bladder is undistended, poorly visualized. IMPRESSION: No hydronephrosis, which may indicate patient has passed right UVJ stone seen on recent C T. Have symptoms resolved? Reviewed, dictated and finalized at location A. RVISOR GENERAL IMPRESSION: No hydronephrosis, which may indicate patient has passed right UVJ stone seen on recent CT. Have symptoms resolved?
== END 2020-05-30 07:45 | disposition home or self-care (01) ==
PROVIDERS: PCP Family Medicine; Visit Provider Urology
DX: N20.1 Calculus of ureter (principal)
CPT/HCPCS: 76770

== ENCOUNTER 2021-05-16 12:07 | Outpatient (CLI) | payer OTHER, SELFPAY ==
--- NOTE | ~2021-05-16 | MM_ITS ---
EXAMINATION: MM screening ismael BI w dashawn HISTORY: Screening TECHNIQUE: Craniocaudal and mediolateral oblique 3-D tomosynthesis images were obtained and synthetic 2-D images were generated. CAD analysis was submitted and interpreted. COMPARISON: Comparison to multiple prior studies sequentially, with oldest reviewed study dated 09/2015. BREAST PARENCHYMAL COMPOSITION: Breast composed of scattered areas of fibroglandular density. FINDINGS: The left breast is stable without evidence for malignancy. There is a developing focal asym metry in the lower central aspect of the right breast. There is a periareolar mass which has develope d in the right breast. IMPRESSION: 1. Developing right breast periareolar mass and focal asymmetry. 2. Additional mammographic views and possible breast ultrasound are recommended. BI-RADS Category 0: Incomplete: Needs additional imaging evaluation. Reviewed, dictated and finalized at location D. RED BUTTON MAKER IMPRESSION: 1. Developing right breast periareolar mass and focal asymmetry. 2. Additional mammographic views and possible breast ultrasound are recommended . BI-RADS Category 0: Incomplete: Needs additional imaging evaluation.
== END 2021-05-16 12:08 | disposition home or self-care (01) ==
LOC: ANHIMG 12:08
PROVIDERS: PCP Family Medicine; Visit Provider Student in an Organized Health Care Education/Training Program
DX: Z12.31 Encounter for screening mammogram for malignant neoplasm of breast (principal); R92.8 Other abnormal and inconclusive findings on diagnostic imaging of breast
CPT/HCPCS: 77063; 77067

== ENCOUNTER 2021-06-05 11:16 | Outpatient (CLI) | payer OTHER, SELFPAY ==
--- NOTE | ~2021-06-05 | MMUS_ITS ---
EXAMINATION: MM diagnostic ismael RT w dashawn, US breast RT limited HISTORY: Follow-up right breast mass TECHNIQUE: Additional 3-D tomosynthesis images of the right breast were performed and synthetic 2-D i mages were generated. CAD analysis was submitted and interpreted. High resolution Limited right breas t ultrasound was performed. COMPARISON: 05/16/2021 BREAST PARENCHYMAL COMPOSITION: Breast composed of scattered areas of fibroglandular density. FINDINGS: MAMMOGRAPHIC FINDINGS: There is an enlarging subareolar mass of the right breast. There are no suspicious calcifications or architectural distortion. ULTRASOUND: Limited right breast ultrasound: There are 2 cyst of the 6:00 position, largest measuring 12 mm maxim um dimension corresponding to the subareolar mass. There is an adjacent 4 mm cyst. IMPRESSION: 1. Benign left breast cyst corresponding to the areas of mammographic abnormality. No evidence for ma lignancy. 2. Routine yearly screening mammogram and regular clinical breast examination are recommended. BI-RADS Category 2: Benign finding(s). Reviewed, dictated and finalized at location A. PMENT PLANNER IMPRESSION: 1. Benign left breast cyst corresponding to the areas of mammographic abnormali ty. No evidence for malignancy. 2. Routine yearly screening mammogram and regular clinical breast examination a re recommended. BI-RADS Category 2: Benign finding(s).
== END 2021-06-05 11:17 | disposition home or self-care (01) ==
LOC: ANHIMG 11:17
PROVIDERS: PCP Family Medicine; Visit Provider Student in an Organized Health Care Education/Training Program
DX: R92.8 Other abnormal and inconclusive findings on diagnostic imaging of breast (principal)
CPT/HCPCS: 76642; 77061; 77065; G0279

== ENCOUNTER 2021-11-06 06:35 | Outpatient (CLI) | payer OTHER, SELFPAY ==
--- NOTE | ~2021-11-06 | MR_ITS ---
EXAMINATION: MR brain/brain stem wo con DATE: 11/06/2021 07:15 INDICATION: Facial numbness. Facial weakness. TECHNIQUE: Magnetic resonance imaging (MRI) of the brain and brainstem was performed without intraven ous contrast. COMPARISON: None. FINDINGS: There is no intracranial hemorrhage, acute infarction, or abnormal intracranial mass lesion . The ventricles are normal in size. The paranasal sinuses are clear. The orbits are normal. The mast oid air cells are normal. IMPRESSION: 1. Normal brain. Reviewed, dictated and finalized at location A. IMPRESSION: 1. Normal brain.
== END 2021-11-06 06:36 | disposition home or self-care (01) ==
LOC: ANHIMG 06:39
PROVIDERS: PCP Family Medicine; Visit Provider Physician Assistant
DX: R20.0 Anesthesia of skin (principal); R29.810 Facial weakness
CPT/HCPCS: 70551

== ENCOUNTER 2022-06-26 06:34 | Outpatient (CLI) | payer OTHER, SELFPAY ==
--- NOTE | ~2022-06-26 | MR_ITS ---
MRI of the brain Clinical History: Perioral numbness Technique: Axial and sagittal T1-weighted images were acquired. These were followed by axial T2-weigh moises, diffusion weighted, gradient, and FLAIR images. Following intravenous administration of 20 cc Mu ltiHance gadolinium, T1-weighted fat-sat imaging was performed in the axial and coronal planes. COMPARISON: 11/06/2021 Findings: No abnormal signal seen in the brain parenchyma. No acute infarct, intracranial hemorrhage, or mass lesion. Ventricles and subarachnoid spaces are unremarkable. Orbits are unremarkable. Paranasal sinuses and m astoid air cells are clear. Major intracranial flow voids appear intact. Sagittal midline structures are intact. No abnormal postcontrast enhancement identified. IMPRESSION: Unremarkable exam. Reviewed, dictated and finalized at location . IMPRESSION: Unremarkable exam.
== END 2022-06-26 06:35 | disposition home or self-care (01) ==
PROVIDERS: PCP Family Medicine; Visit Provider Student in an Organized Health Care Education/Training Program
DX: R20.0 Anesthesia of skin (principal)
CPT/HCPCS: 70553; A9577

== ENCOUNTER 2022-07-31 09:56 | Outpatient (CLI) | payer OTHER, SELFPAY ==
--- NOTE | ~2022-07-31 | MM_ITS ---
EXAMINATION: MM screening ismael BI w dashawn HISTORY: Screening mammogram, family history of breast cancer in her mother. TECHNIQUE: Craniocaudal and mediolateral oblique 3-D tomosynthesis images were obtained and synthetic 2-D images were generated. CAD analysis was submitted and interpreted. COMPARISON: 06/05/2021, 05/16/2021, 03/08/2020, 09/16/2019, 09/08/2018 BREAST PARENCHYMAL COMPOSITION: There are scattered areas of fibroglandular density. FINDINGS: A subareolar cyst is noted in the right breast. No suspicious mass, calcification, or archi tectural distortion are identified in either breast to suggest malignancy. There has been no suspicio us interval change. IMPRESSION: 1. No mammographic evidence of malignancy. 2. Recommend routine screening mammography in one year. BI-RADS Category 2: Benign finding(s). Reviewed, dictated and finalized at location A.
== END 2022-07-31 09:57 | disposition home or self-care (01) ==
LOC: ANHIMG 09:59
PROVIDERS: PCP Family Medicine; Visit Provider Obstetrics & Gynecology
DX: Z12.31 Encounter for screening mammogram for malignant neoplasm of breast (principal)
CPT/HCPCS: 77063; 77067

== ENCOUNTER 2022-08-15 14:55 | Outpatient (CLI) | payer OTHER, SELFPAY ==
--- NOTE | ~2022-08-15 | XR_ITS ---
EXAMINATION: XR elbow RT min 3V DATE: 08/15/2022 15:14 INDICATION: A few days of right elbow pain TECHNIQUE: Anteroposterior, two oblique and lateral views of the right elbow were obtained. COMPARISON: None. FINDINGS: Alignment is normal. No fracture or joint effusion. Joint spaces are normal. Soft tissues are unremar kable. IMPRESSION: 1. . Negative right elbow radiographs. Reviewed, dictated and finalized at location A.
== END 2022-08-15 14:56 | disposition home or self-care (01) ==
PROVIDERS: PCP Family Medicine; Visit Provider Physician Assistant
DX: M25.521 Pain in right elbow (principal)
CPT/HCPCS: 73080

== ENCOUNTER 2023-07-23 10:39 | Outpatient (CLI) | payer OTHER, SELFPAY ==
--- NOTE | ~2023-07-23 | MMUS_ITS ---
EXAMINATION: MM diagnostic ismael BI w dashawn, US breast BI complete HISTORY: Medial left breast pain for 3 weeks TECHNIQUE: Full field and spot ML, MLO and CC 3-D tomosynthesis images of both breasts were performed and synthetic 2-D images were generated. CAD analysis was submitted and interpreted. High resolution complete bilateral breast ultrasound examination including all 4 quadrants and subareolar area of ea ch breast was performed. COMPARISON: 08/17/2022 bilateral screening mammogram 06/05/2021 diagnostic right mammogram and limited right breast ultrasound January bilateral screening mammogram BREAST PARENCHYMAL COMPOSITION: There are scattered areas of fibroglandular density. FINDINGS: MAMMOGRAPHIC FINDINGS: Approximately 6 and 7 mm circumscribed opacities are suggested anteriorly in the lower outer right br east. 6.7 mm oil cyst is noted posteriorly in the lower central right breast. 5.4 mm coil cyst with thin soft tissue rim and focal benign rounded calcification is noted outer mid left breast anteriorly. ULTRASOUND: No suspicious mass or shadowing of either breast is detected. Right breast: 4.4 mm and 5.6 mm cysts are noted at 6:00 6 cm from the nipple. Left breast: Circumscribed 5.5 x 5 mm sonolucency is noted at 2:00 near nipple, without internal vasc ularity, benign in appearance. 4:00 3 cm from nipple: Circumscribed sonolucency measuring 2.6 x 3 mm, without internal vascularity o r posterior shadowing, benign in appearance 5:00 6 cm from nipple: Probable benign septated 3.6 x 5.4 mm cyst IMPRESSION: 1. Benign findings 2. Routine annual mammographic screening is recommended. BI-RADS Category 2: Benign finding(s). Reviewed, dictated and finalized at location A. IMPRESSION: 1. Benign findings 2. Routine annual mammographic screening is recommended. BI-RADS Category 2: Benign finding(s).
== END 2023-07-23 10:40 | disposition home or self-care (01) ==
LOC: ANHIMG 10:40
PROVIDERS: PCP Family Medicine; Visit Provider Physician Assistant
DX: N64.4 Mastodynia (principal)
CPT/HCPCS: 76641; 77062; 77066; G0279

== ENCOUNTER 2024-03-09 13:42 | Outpatient (CLI) | payer OTHER, SELFPAY ==
--- NOTE | ~2024-03-09 | XR_ITS ---
XR sacroiliac joints min 3V Ordering provider: Angela Arana PA-C History: . M54.31 - Sciatica, right side . Comparison: None. FINDINGS: BONES: No acute fracture or dislocation. JOINTS: The bilateral sacroiliac joint spaces appear well maintained. No bony fusion of the sacroilia c joints or bony erosions. SOFT TISSUES: Unremarkable. IMPRESSION: NO ACUTE OSSEOUS ABNORMALITY. NORMAL SACROILIAC JOINTS. Reviewed, dictated and finalized at location A. CULTURAL PRODUCE WASHER
--- NOTE | ~2024-03-09 | XR_ITS ---
3 VIEWS LUMBAR SPINE Ordering provider: Angeal Arana PA-C History: . M54.31 - Sciatica, right side . Comparison: None. FINDINGS: VERTEBRAL BODIES: No visible fracture or subluxation. Severe bending of the coccyx. DISK SPACES: Normal. Multilevel facet joint disease in the lower lumbar area. SOFT TISSUES: Normal. IMPRESSION: No acute osseous abnormality lumbar spine. Reviewed, dictated and finalized at location A. WRIGHT
== END 2024-03-09 13:43 | disposition home or self-care (01) ==
PROVIDERS: PCP Family Medicine; Visit Provider Physician Assistant Medical
DX: M54.31 Sciatica, right side (principal)
CPT/HCPCS: 72100; 72202

== ENCOUNTER 2024-06-22 01:45 | Day surgery (SDC) | payer OTHER, SELFPAY ==
[2024-06-11 10:36] VITALS: BMI 35.8
--- OUTSIDE RECORDS SUMMARY | 2024-06-22 02:03 | XMS_ITS | Clinical Summary ---
Author Organization [facility] Address [address] [place] [address] Phone Care Team Providers Care Installation Superintendent Name Role Phone Provider, Unknown Primary Care Provider Unavaila ble Allergies Active Allergy Reactions Criticality Noted Date Comments Banana Hives 07/25/2009 Egg White Hives 07/25/2009 Flu Virus Vaccine Hives 07/25/2009 Due to egg allergy Other Itching 02/13/2010 enviramental-sneezing, watery eyes Medications RETIN-A 0.025 % EX CREA by Topical route Nightly. Active BENADRYL 25 MG PO CAPS Take 2 Caps by mouth daily. Active NAPROXEN 250 MG PO TABS take 2 Tabs by mouth 2 times daily as needed for Pain. Active Cholecalciferol (VITAMIN D) 1000 UNIT PO TABS Take 1,000 Units by mouth daily. Active vitamin E 400 UNIT PO CAPS Take 400 Units by mouth daily. Active Docusate Calcium (STOOL SOFTENER PO) Take 1 Cap by mouth daily. Active azithromycin 250 MG PO TABSIndications: Bronchitis,URI (upper respiratory infection) Take by mouth daily. 2 tab(s) daily for 1 day, then 1 tab(s) daily for days 2-5. 6 Tab 0 1 Active levothyroxine 75 MCG PO TABS Take 1 Tab by mouth daily. 90 Tab 3 1 Active VENTOLIN HFA 108 (90 BASE) MCG/ACT IN AERS take 1-2 Puffs by inhalation every 6 hours as needed for Wheezing. To replace Proair 1 Inhaler 5 1 Active Active Problems Problem Noted Date Diagnosed Date Urinary incontinence, stress 02/20/2010 Lymphocytosis 05/27/2008 Weight loss, unintentional 05/27/2008 Hypothyroidism 05/20/2008 Orthostatic hypotension 05/20/2008 Easy bruising 05/20/2008 Social History Tobacco Use Types Packs/Day Years Used Date Smoking Tobacco: Never Alcohol Use Standard Drinks/Week Comments No 0 (1 standard drink = 0.6 oz pur e alcohol) rarely Comments No Sex and Gender Information Value Date Recorded Sex Assigned at Not on file Legal Sex Female 3:02 AM CONDENSER SETTER Gender Identity Not on file Sexual Orientation Not on file Last Filed Vital Signs Vital Sign Reading Time Taken Comments Blood Pressure 110/80 05/23/2010 11:01 AM CONDENSER SETTER Pulse 84 05/23/2010 11:01 AM CONDENSER SETTER Temperature 36.6 C (97.9 F) 05/23/2010 11:01 AM CONDENSER SETTER Respiratory Rate 16 05/23/2010 11:01 AM CONDENSER SETTER Oxygen Saturation 98% 05/23/2010 11:01 AM CONDENSER SETTER Inhaled Oxygen Concentration - - Weight 71.2 kg (157 lb) 05/23/2010 11:01 AM CONDENSER SETTER Height 166.4 cm (5' 5.5 ) 05/23/2010 11:01 AM CS T Body Mass Index 25.73 05/23/2010 11:01 AM CONDENSER SETTER Plan of Treatment Health Maintenance Due Date Last Done Comments Hepatitis C Virus (HCV) Screening 1976 TdaP Immunization 1976 Hepatitis B Immunization (1 of 3 - 19+ 3-dose series) 09/24/1995 HPV/Cotest 2006 Cervical Cancer Screening (CCS) 10/24/2012 Pap Smear 10/24/2012 10/24/2009, 07/21/2007 Discussion re Starting/Frequency of Mammograms 2016 Colonoscopy 2021 Colorectal Cancer Screening 2021 Influenza Immunization (#1) 2023 SARS-COV-2 Immunization (2023- season) 2023 Respiratory Syncytial Virus (RSV) Immunization (Adult) (1 - 1-dose 75+ series) 09/24/2051 Meningococcal Immunization (ACWY) Aged Out No longer eligible b ased on patient's age to complete this topic Pneumococcal Immunization Combined Aged Out No longer eligible b ased on patient's age to complete this topic Rotavirus Immunization Aged Out No lo nger eligible based on patient's age to complete this topic Medical Devices Implanted Type Area Waste Collector Device Identifier Shelf Expiration Date Model / Serial / Lot Sling System Single Incision Mini Arc - [id number] Implanted:Qty: 1 on 02/20/2010 at [facility] IMPLANT Urethra [employer] 10/09/2012 [id number] / / [id number] Description:Mini Arc Sling S ystem Procedures Procedure Name Priority Date/Time Associated Diagnosis Comments PATHOLOGY CYTOLOGY CHILD AND FAMILY COUNSELOR Routine 10/24/2009 9:41 PM CDT from Last 3 Months or Most Recently Relevant to Health Maintenance Results * PATHOLOGY CYTOLOGY CHILD AND FAMILY COUNSELOR (10/24/2009 9:41 PM CDT) 10/24/2009 9:41 PM CDT 10/24/2009 9:41 PM CDT Narrative [facility] - 10/31/2009 10:06 AM CDT CYTOPATHOLOGY REPORT: Patient Name: ELSY CHING Gender: F Location: [facility] ([facility]) Case #: [id number] Collect Date: 10/24/2009 Received: 10/24/2009 Reported: 10/31/2009 Final Cytologic Diagnosis: Vaginal/Cervical/Endocervical, liquid based thin layer preparation (Thin Prepe): Satisfactory for evaluation. Endocervical/transformation zone cellular component noted. NEGATIVE FOR INTRAEPITHELIAL LESIONS OR MALIGNANCY No dysplastic squamous cells identified. Analysis of this sample has been assisted by an automated imaging and review system ([employer] System, [employer], [place], [place]). The case is further evaluated and finalized by a integrated pest management technician and/or pathologist. Electronically Signed Out By [id number] The PAP smear is a preliminary screening procedure designed to detect the presence of cancerous or precancerous cells of the cervix. It is the best means available for early detection of cervical cancer, but it is not perfect. False negative results will sometimes be reported. To reduce the possibility of a false negative result, an annual PAP smear is recommended. Moreover, any suspicious signs of possible symptoms of cancer should be followed up. us Liudmila Neumann METAL DRESSER, BIOPHYSICS PROFESSOR PATHOLOGY/CYTOLOGY ORD ERABLES Final Result [facility] [address] [place] [address] from Last 3 Months or Most Recently Relevant to Health Maintenance Insurance [facility] Care Teams Installation Superintendent Relationship Specialty Start Date End Date Provider, Unknown UNKNOWN PCP - General 04/29/18
--- OUTSIDE RECORDS SUMMARY | 2024-06-22 02:03 | XMS_ITS | Encounter Summary ---
Author Organization [facility] Address [address] [place] [address] Care Team Providers Care Chemistry Intern Name Role Phone Chucho Martin MD Primary Care Provider [phone] Encounter Details Date Type Department Care Team (Late st Contact Info) Description 04/14/2024 Lab Requisition [facility] - DermPath Lab [address] [place] [address] Janel Menchaca DO [address] [facility] [address] [place] [address] Social History Tobacco Use Types Packs/Day Years Used Date Smoking Tobacco: Never Smokeless Tobacco: Never Sex and Gender Information Value Date Recorded Sex Assigned at Not on file Gender Identity Not on file Sexual Orientation Not on file documented as of this encounter Plan of Treatment Not on file documented as of this encounter Procedures Procedure Name Priority Date/Time Associated Diagnosis Comments DERMATOPATHOLOGY Routine 04/14/2024 10:3 5 AM CREDIT RISK REVIEW OFFICER documented in this encounter Results * DERMATOPATHOLOGY (04/14/2024 10:35 AM CREDIT RISK REVIEW OFFICER) Case Report Dermatopathology Report Case: [id number] Authorizing Provider: Janel Menchaca DO Collected: 04/14/2024 10:35 AM Ordering Location: [facility] - Received: 04/15/2024 09:24 AM DermPath Lab Pathologist: Candi Lino MD Specimen: Skin, left wrist 3:23 PM CREDIT RISK REVIEW OFFICER DERMATOPATHOLOGY LABORATORY Final Diagnosis Specimen A. SKIN, left wrist: FRAGMENTS OF EPIDERMIS (D23.9) (see microscopic description) 3:23 PM [facility] DERMATOPATHOLOGY LABORATORY Clinical History DF vs Nevus R/O NMSC 3:23 PM [facility] DERMATOPATHOLOGY LABORATORY Gross Description Specimen A: Received is one formalin filled container labeled with the patient's name and designated left wrist. The specimen consists of a shave biopsy measuring 5x3x1 mm. Jar 0. 3:23 PM [facility] DERMATOPATHOLOGY LABORATORY Microscopic Description Specimen A. SKIN, left wrist: There are fragments of squamous epithelium without evidence of epithelial dysplasia or malignancy. There is minimal dermis present for evaluation. Additional deeper sections were obtained and reviewed. 3:23 PM [facility] DERMATOPATHOLOGY LABORATORY Disclaimer An external and internal positive and negative controls are appropriate for the histochemical, immunohistochemical and immunofluorescence stain(s) in this case (if any), except where stated explicitly. The performance characteristics of the stain(s) cited in this report were developed and its performance characteristic determined by the Dermatopathology Laboratory at [facility], directed by Dr. Zach Lino. These tests need not be, and therefore are not, approved by the [place] Food and Drug Administration. The tests are used for clinical purposes. Billing Codes Specimen Charges Stain Charges 82677 1 3:23 PM [facility] DERMATOPATHOLOGY LABORATORY Embedded Images 3:23 PM [facility] DERMATOPATHOLOGY LABORATORY Pathology/Cytolo gy TISSUE SPECIMEN FROM SKIN / Unknown 04/14/2024 10:35 AM CREDIT RISK REVIEW OFFICER 04/15/2024 9:24 AM CREDIT RISK REVIEW OFFICER Janel Menchaca DO LAB - PATHOLOGY/C YTOLOGY ORDERABLES DERMATOPATHOLOGY LABORATORY [facility] - Department of Dermatology [address] [phone] documented in this encounter Visit Diagnoses Not on filedocumented in this encounter Care Teams Chemistry Intern Relationship Specialty Start Date End Date Chucho Martin MD [address] [place] [id number] PCP - General Family Medicine 06/29/17 documented as of this encounter
--- OUTSIDE RECORDS SUMMARY | 2024-06-22 02:03 | XMS_ITS | Clinical Summary ---
Author Organization [facility] [email or web address] Address [address] [place] [address] Care Team Providers Care Rebar Worker Name Role Phone Chucho Martin MD Primary Care Provider [phone] Source Comments [facility] [email or web address],non-owned Affiliates and Associated Physician Practices is amultiple site organization consisting of ambulatory clinics and hospital sitesin [place], [place], [place] and [place]. This disclosure is being madepursuant to the Care Everywhere program and may not contain all information available regarding this patient. Last updated 17.[facility] [email or web address] Allergies Active Allergy Reactions Criticality Noted Date Comments Clindamycin GI Discomfort 06/29/2017 Medications * Be aware that medications may not be up to date on this document. Alwaysverify current medications with the patient. Medication Sig Dispensed Refills Start Date End Date Status levothyroxine (SYNTHROID) 88 MCG tablet Take 88 mcg by mouth daily before breakfast Active estradiol (ESTRACE) 1 MG tablet Take 1 mg by mouth once daily Active ALBUTEROL IN Active diphenhydrAMINE (BENADRYL) 25 MG capsule Take 25 mg by mouth every 4 hours as needed for Itching Active pseudoephedrine (SUDAFED) 30 MG tablet Take 30 mg by mouth every 4 hours as needed for Nasal Congestion Active montelukast (SINGULAIR) 10 MG tablet Take 10 mg by mouth at bedtime Active ibuprofen (MOTRIN) 800 MG tablet Take 800 mg by mouth every 6 hours as needed for Pain Active HYDROcodone-acetamin ophen (NORCO) 5-325 MG tablet Take 1 tablet by mouth every 4 hours as needed for Pain Active Escitalopram Oxalate (LEXAPRO PO) Active MELATONIN PO Active Encounters Date Type Department Care Team Description 04/14/2024 Lab Requisition [facility] - DermPath Lab [address] [facility] [facility] [place] [address] Janel Menchaca DO from Last 3 Months Social History Tobacco Use Types Packs/Day Years Used Date Smoking Tobacco: Never Smokeless Tobacco: Never Sex and Gender Information Value Date Recorded Sex Assigned at Not on file Gender Identity Not on file Sexual Orientation Not on file Last Filed Vital Signs Vital Sign Reading Time Taken Comments Blood Pressure 118/80 03/17/2019 9:05 AM DOUBLER HELPER Pulse 81 03/17/2019 9:05 AM DOUBLER HELPER Temperature 37.2 C (99 F) 03/17/2019 9:05 AM DOUBLER HELPER Respiratory Rate 16 03/17/2019 9:05 AM DOUBLER HELPER Oxygen Saturation 97% 03/17/2019 9:05 AM DOUBLER HELPER Inhaled Oxygen Concentration - - Weight 86.2 kg (190 lb) 03/17/2019 9:05 AM DOUBLER HELPER Height 165.1 cm (5' 5 ) 03/17/2019 9:05 AM DOUBLER HELPER Body Mass Index 31.62 03/17/2019 9:05 AM DOUBLER HELPER Plan of Treatment Health Maintenance Due Date Last Done Comments COLOGUARD (AGES 45-75) - COL ON CA SCREENING 1976 COLON MONITORING 1976 COLONOSCOPY - COLON CA SCREENING 1976 CT COLONOGRAPHY - COLON CA SCREENING 1976 Colorectal Cancer Screening 1976 FIT - COLON CA SCREENING 1976 FLEX SIG - COLON CA SCREENING 1976 LIPID TESTING 1976 MAMMOGRAM 1976 PAP SMEAR 1976 HIV SCREENING 09/24/1991 HEPATITIS C SCREENING 09/19/1994 DTAP/TDAP/TD VACCINES (1 - Tdap) 09/24/1995 HEPATITIS B VACCINE (1 of 3 - 19+ 3-dose series) 09/24/1995 SCREENING FOR DIABETES 03/17/2019 COVID-19 VACCINE ( - 2023-2 5 season) 2023 INFLUENZA VACCINE (#1) 2023 DEPRESSION SCREENING 03/31/2024 ZOSTER VACCINE (1 of 2) 2026 HIB VACCINE Aged Out No longer eligi ble based on patient's age to complete this topic HPV VACCINE Aged Out No longer eligi ble based on patient's age to complete this topic MENINGOCOCCAL (Group B) VACC INE SHARED DECISION-MAKING Aged Out No longer eligibl e based on patient's age to complete this topic MENINGOCOCCAL GROUPS A/C/Y/W VACCINE Aged Out No longer eligible b ased on patient's age to complete this topic PNEUMOCOCCAL VACCINE Aged Out No long er eligible based on patient's age to complete this topic Procedures Procedure Name Priority Date/Time Associated Diagnosis Comments DERMATOPATHOLOGY Routine 04/14/2024 10:3 5 AM DOUBLER HELPER from Last 3 Months Results * DERMATOPATHOLOGY (04/14/2024 10:35 AM DOUBLER HELPER) Case Report Dermatopathology Report Case: [id number] Authorizing Provider: Janel Menchaca DO Collected: 04/14/2024 10:35 AM Ordering Location: [facility] - Received: 04/15/2024 09:24 AM DermPath Lab Pathologist: Candi Lino MD Specimen: Skin, left wrist 3:23 PM [facility] DERMATOPATHOLOGY LABORATORY Final Diagnosis Specimen A. SKIN, left wrist: FRAGMENTS OF EPIDERMIS (D23.9) (see microscopic description) 3:23 PM [facility] DERMATOPATHOLOGY LABORATORY Clinical History DF vs Nevus R/O NMSC 3:23 PM [facility] DERMATOPATHOLOGY LABORATORY Gross Description Specimen A: Received is one formalin filled container labeled with the patient's name and designated left wrist. The specimen consists of a shave biopsy measuring 5x3x1 mm. Jar 0. 3:23 PM [facility] DERMATOPATHOLOGY LABORATORY Microscopic Description Specimen A. SKIN, left wrist: There are fragments of squamous epithelium without evidence of epithelial dysplasia or malignancy. There is minimal dermis present for evaluation. Additional deeper sections were obtained and reviewed. 3:23 PM [facility] DERMATOPATHOLOGY LABORATORY Disclaimer An external and internal positive and negative controls are appropriate for the histochemical, immunohistochemical and immunofluorescence stain(s) in this case (if any), except where stated explicitly. The performance characteristics of the stain(s) cited in this report were developed and its performance characteristic determined by the Dermatopathology Laboratory at [facility], directed by Dr. Zach Lino. These tests need not be, and therefore are not, approved by the [place] Food and Drug Administration. The tests are used for clinical purposes. Billing Codes Specimen Charges Stain Charges 62494 1 5 3:23 PM DOUBLER HELPER DERMATOPATHOLOGY LABORATORY Embedded Images 5 3:23 PM DOUBLER HELPER DERMATOPATHOLOGY LABORATORY Pathology/Cytolo gy TISSUE SPECIMEN FROM SKIN / Unknown 04/14/2024 10:35 AM DOUBLER HELPER 04/15/2024 9:24 AM DOUBLER HELPER Janel Menchaca DO LAB - PATHOLOGY/C YTOLOGY ORDERABLES DERMATOPATHOLOGY LABORATORY [facility] - Department of Dermatology [address] [phone] from Last 3 Months Care Teams Rebar Worker Relationship Specialty Start Date End Date Chucho Martin MD [address] [place] [address] PCP - General Family Medicine 06/29/17
--- OUTSIDE RECORDS SUMMARY | 2024-06-22 02:03 | XMS_ITS | Clinical Summary ---
Author Organization [facility] Address [address] [place]: Epic Prelude ADT [place]UL[place] [address] Care Team Providers Care Fruit Stuffer Name Role Phone Unavailable Primary Care Provider Unavailabl e Social History Tobacco Use Types Packs/Day Years Used Date Smoking Tobacco: Never Assessed Comments Unknown Sex and Gender Information Value Date Recorded Sex Assigned at Not on file Legal Sex Female 4:46 AM EVENTS ASSISTANT Gender Identity Not on file Sexual Orientation Not on file Plan of Treatment Health Maintenance Due Date Last Done Comments DTAP/TDAP/TD VACCINES (1 - Tdap) 09/24/1995 HEPATITIS B VACCINES (1 of 3 - 19+ 3-dose series) 08/30 PAP SMEAR 1997 CERVICAL CANCER SCREENING 2006 HPV/Cotest 2006 PAP SMEAR 2006 BREAST CANCER SCREENING 2016 COLORECTAL SCREENING 2021 Colorectal Cancer Screening 2021 FIT-DNA Q 3 years 2021 FIT/FOBT Q 1 year 2021 Flex Sig/CT Colonography Q 5 years 2021 INFLUENZA VACCINE (#1) 2023
--- OUTSIDE RECORDS SUMMARY | 2024-06-22 02:03 | XMS_ITS | Encounter Summary ---
Author Organization [facility] Address [address] [place] [address] Care Team Providers Care Machine Woodworking Sander Name Role Phone Unavailable Primary Care Provider Unavailabl e Encounter Details Date Type Department Care Team (Late st Contact Info) Description 11/07/1998 Outpatient Historical [facility] Gurdeep Telles MD Social History Tobacco Use Types Packs/Day Years Used Date Smoking Tobacco: Never Assessed Comments Unknown Sex and Gender Information Value Date Recorded Sex Assigned at Not on file Legal Sex Female 4:46 AM ELECTRICIAN UNDERGROUND Gender Identity Not on file Sexual Orientation Not on file documented as of this encounter Plan of Treatment Not on file documented as of this encounter Visit Diagnoses Not on filedocumented in this encounter
[2024-06-22 06:20] VITALS: BP 138/93; PULSE 103; RESP 20; TEMP 35.5; O2SAT 98; BMI 36.0
[2024-06-22] MEDS: LACTATED RINGERS 1,000 ML 150 ML IV CONT (06:36)
--- NOTE | 2024-06-22 07:01 | P.PNAN_ITS ---
Anes - Initial Pre Proc Eval Procedure: Operation Date: 06/22/24 07:30 Proposed Procedures p Screening Colonoscopy - Carmelo Alcantar MD Date/Time: 06/22/24 07:01 Surgeon: Carmelo Alcantar MD Pre Op Diagnosis: Screening for malignant neoplasm of rectum Patient Data Age: 48 Gender: F Height: 1.65 m Weight: 98.3 kg Last Vital Signs Temp 35.5 C L 06/22/24 06:20 Pulse 103 H 06/22/24 06:20 Resp 20 06/22/24 06:20 BP 138/93 H 06/22/24 06:20 Pulse Ox 98 06/22/24 06:20 O2 Del Method Room Air 06/22/24 06:20 Allergies Allergy/AdvReac Type Severity Reaction Status Date / Time adhesive Allergy Unknown Rash Verified 06/22/24 06:17 egg Allergy Unknown Itching Verified 06/22/24 06:17 mold Allergy Unknown Other Verified 06/22/24 06:17 Home Medications ?Medication ?Instructions ?Recorded ?Confirmed ?Type pseudoephedrine HCl 30 mg tablet 60 mg PO Q4-6H PRN Allergy Symptoms 08/31/19 06/11/24 History (Sudafed) melatonin 5 mg capsule See Rx Instructions PO .COMPLEX 09/25/21 06/22/24 History mecobalamin (vitamin B12) 1,000 1,000 mcg sublingual DAILY #90 tabs 11/06/21 06/22/24 Rx mcg disintegrating tablet,sublingual tamsulosin 0.4 mg capsule 0.4 mg PO DAILY PRN for kidney 01/08/22 06/11/24 Rx stones #90 caps cholecalciferol (vitamin D3) 1,250 1,250 mcg PO WEEKLY 02/28/22 06/22/24 History mcg (50,000 unit) capsule ibuprofen 800 mg tablet 800 mg PO TID 02/28/22 06/22/24 History spironolactone 100 mg tablet 150 mg PO DAILY 06/18/22 06/22/24 History tretinoin 0.1 % topical cream 1 applic topical QHS #45 grams 08/16/22 06/22/24 Rx lorazepam 0.5 mg tablet (Ativan) See Rx Instructions PO TID PRN 07/01/23 06/11/24 Rx anxiety #60 tabs escitalopram oxalate 20 mg tablet 20 mg PO DAILY #90 tabs 09/08/23 06/22/24 Rx montelukast 10 mg tablet See Rx Instructions .Route 09/08/23 06/22/24 Rx .COMPLEX #90 tabs cetirizine 10 mg capsule (Zyrtec) 10 mg PO DAILY PRN allergy symptoms 01/28/24 06/11/24 History estradiol 1 mg tablet See Rx Instructions .Route 01/28/24 06/22/24 Rx .COMPLEX #90 tabs albuterol sulfate 90 mcg/actuation See Rx Instructions .Route 02/16/24 06/11/24 Rx aerosol inhaler .COMPLEX #8.5 ea baclofen 10 mg tablet 10 mg PO QHS PRN muscle spasm #14 03/03/24 06/11/24 Rx tabs fluticasone propionate 110 1 puff inhalation Q12H #12 grams 03/03/24 06/22/24 Rx mcg/actuation HFA aerosol inhaler levothyroxine 112 mcg tablet 112 mcg PO DAILY #90 tabs 03/22/24 06/22/24 Rx Patient hx anesthesia problems: none Family hx anesthesia problems: none Results Review: All pre-operative results and documents have been reviewed as part of the pre- operative evaluation. [facility] Past Medical History Medical History Lateral epicondylitis of right elbow Right elbow pain Pelvic floor dysfunction in female Anxiety Allergies Facial numbness Spondylosis of thoracolumbar spine Upper back pain Right ureteral calculus Ureterolithiasis Osteopenia Hypothyroidism History of nephrolithiasis Hormone replacement therapy (HRT) Breast mass, left Endometriosis Asthma Vaginal delivery x 2 Thyroid disease Surgical History Surgical History History of bladder surgery History of breast lift H/O bilateral breast reduction surgery History of laparoscopy [place] teeth removed H/O total hysterectomy with bilateral salpingo-oophorectomy (BSO) Family History Family History Father Asthma Thyroid disorder Grandparent Hypertension Cerebrovascular accident Family history of malignant neoplasm of breast Cancer Diabetes mellitus Heart disease Thyroid disorder Son Asthma Mother Cancer Depression Thyroid disorder Daughter Cancer Thyroid disorder Social History Social History Social History: caffeine use Smoking status: Never smoker Second hand tobacco smoke exposure: No Alcohol intake: never Substance use: never Substance use type: does not use Lack of Transportation: No Lack of Food: Never True Current Housing: I Have Housing Concerned About Future Housing: No Difficulty Paying Gas/Electric Bills: No Difficulty Paying for Meds: No Currently Unemployed: No Education: Master's Degree or Higher Difficulty w/ Childcare or Family Care: No Living arrangements: with family Occupation/Education: occupation 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- [employer] Gender identity (if verbalized by the patient): Female Sexual Orientation (if Verbalized by the Patient): Straight or Heterosexual Anes - Eval Final PreProcedure Day of Procedure 06/22/24 07:01 Patient weight: obese Heart: regular rate and rhythm Lungs: clear to auscultation Airway: Mallampati scale class II Neurological: alert and oriented Last oral intake: >/= 8 hours ASA classification: III Emergent: no Anesthetic plan: proceed Anesthesia type and monitoring: general GIVS and standard monitoring Results Review: All pre-operative results and documents have been reviewed as part of the pre- operative evaluation. Informed Consent: The patient's anesthetic plan and its attendant risks and benefits were discu ssed with the patient/family/POA. Questions were solicited and answers provided to the satisfaction of the patient/family/POA.
--- NOTE | 2024-06-22 07:37 | P.HP_ITS ---
H&P: HPI History of Present Illness Date/Time: 06/22/24 07:37 Chief Complaint: Screening colonoscopy Narrative: This is the patient's first colonoscopy. There are no GI symptoms and there is no family history of colorectal cancer. Review of Systems Review of Systems: All systems reviewed & are unremarkable except as noted in HPI and below PMFSH Past Medical History Medical History Lateral epicondylitis of right elbow Right elbow pain Pelvic floor dysfunction in female Anxiety Allergies Facial numbness Spondylosis of thoracolumbar spine Upper back pain Right ureteral calculus Ureterolithiasis Osteopenia Hypothyroidism History of nephrolithiasis Hormone replacement therapy (HRT) Breast mass, left Endometriosis Asthma Vaginal delivery x 2 Thyroid disease Surgical History Surgical History History of bladder surgery History of breast lift H/O bilateral breast reduction surgery History of laparoscopy [place] teeth removed H/O total hysterectomy with bilateral salpingo-oophorectomy (BSO) Family History Family History Father Asthma Thyroid disorder Grandparent Hypertension Cerebrovascular accident Family history of malignant neoplasm of breast Cancer Diabetes mellitus Heart disease Thyroid disorder Son Asthma Mother Cancer Depression Thyroid disorder Daughter Cancer Thyroid disorder Social History Social History Social History: caffeine use Smoking status: Never smoker Second hand tobacco smoke exposure: No Alcohol intake: never Substance use: never Substance use type: does not use Lack of Transportation: No Lack of Food: Never True Current Housing: I Have Housing Concerned About Future Housing: No Difficulty Paying Gas/Electric Bills: No Difficulty Paying for Meds: No Currently Unemployed: No Education: Master's Degree or Higher Difficulty w/ Childcare or Family Care: No Living arrangements: with family Occupation/Education: occupation 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- [employer] Gender identity (if verbalized by the patient): Female Sexual Orientation (if Verbalized by the Patient): Straight or Heterosexual Meds Home Medications and Allergies Home Medications ?Medication ?Instructions ?Recorded ?Confirmed ?Type pseudoephedrine HCl 30 mg tablet 60 mg PO Q4-6H PRN Allergy Symptoms 08/31/19 06/11/24 History (Sudafed) melatonin 5 mg capsule See Rx Instructions PO .COMPLEX 09/25/21 06/22/24 History mecobalamin (vitamin B12) 1,000 1,000 mcg sublingual DAILY #90 tabs 11/06/21 06/22/24 Rx mcg disintegrating tablet,sublingual tamsulosin 0.4 mg capsule 0.4 mg PO DAILY PRN for kidney 01/08/22 06/11/24 Rx stones #90 caps cholecalciferol (vitamin D3) 1,250 1,250 mcg PO WEEKLY 02/28/22 06/22/24 History mcg (50,000 unit) capsule ibuprofen 800 mg tablet 800 mg PO TID 02/28/22 06/22/24 History spironolactone 100 mg tablet 150 mg PO DAILY 06/18/22 06/22/24 History tretinoin 0.1 % topical cream 1 applic topical QHS #45 grams 08/16/22 06/22/24 Rx lorazepam 0.5 mg tablet (Ativan) See Rx Instructions PO TID PRN 07/01/23 06/11/24 Rx anxiety #60 tabs escitalopram oxalate 20 mg tablet 20 mg PO DAILY #90 tabs 09/08/23 06/22/24 Rx montelukast 10 mg tablet See Rx Instructions .Route 09/08/23 06/22/24 Rx .COMPLEX #90 tabs cetirizine 10 mg capsule (Zyrtec) 10 mg PO DAILY PRN allergy symptoms 01/28/24 06/11/24 History estradiol 1 mg tablet See Rx Instructions .Route 01/28/24 06/22/24 Rx .COMPLEX #90 tabs albuterol sulfate 90 mcg/actuation See Rx Instructions .Route 02/16/24 06/11/24 Rx aerosol inhaler .COMPLEX #8.5 ea baclofen 10 mg tablet 10 mg PO QHS PRN muscle spasm #14 03/03/24 06/11/24 Rx tabs fluticasone propionate 110 1 puff inhalation Q12H #12 grams 03/03/24 06/22/24 Rx mcg/actuation HFA aerosol inhaler levothyroxine 112 mcg tablet 112 mcg PO DAILY #90 tabs 03/22/24 06/22/24 Rx Allergies Allergy/AdvReac Type Severity Reaction Status Date / Time adhesive Allergy Unknown Rash Verified 06/22/24 06:17 egg Allergy Unknown Itching Verified 06/22/24 06:17 mold Allergy Unknown Other Verified 06/22/24 06:17 Vital Signs Vital Signs - 24 hr 06/22/24 06:20 Temperature 96 F L Pulse Rate 103 H Respiratory Rate 20 Blood Pressure 138/93 H Pulse Oximetry 98 Oxygen Delivery Room Air Exam Const: General: cooperative and healthy appearing Resp: Effort & Inspection: normal respiratory effort and able to speak in complete sentences Auscultation: clear to auscultation bilaterally Cardio: Rate: regular rate Rhythm: regular rhythm GI: Inspection: normal to inspection GI Palp: No No hepatosplenomegaly present Auscultation: normal bowel sounds Rectal Exam: deferred Skin: General skin exam: normal color Psych: Appearance: grossly normal Mental Status: mental status grossly normal Assessment and Plan Assessment and plan (1) Encounter for screening colonoscopy: Code(s): Z12.11 - Encounter for screening for malignant neoplasm of colon Status: Acute Assessment and Plan: The patient is deemed a good candidate for the procedure. Consent signed. Will proceed.
[2024-06-22 07:56] VITALS: BP 108/71; PULSE 73; RESP 20; O2SAT 98
[2024-06-22 08:06] VITALS: BP 105/70; PULSE 80; RESP 20; O2SAT 100
[2024-06-22 08:16] VITALS: BP 118/79; PULSE 70; RESP 18; O2SAT 98
== END 2024-06-22 08:25 | disposition home or self-care (01) ==
PROVIDERS: PCP Family Medicine; Referring Provider Family Medicine; Visit Provider Internal Medicine Gastroenterology
PROC: 0DJD8ZZ Inspection of Lower Intestinal Tract, Via Natural or Artificial Opening Endoscopic (ICD-10-PCS; CPT 45378; principal; 2024-06-22 07:30)
DX: Z12.11 Encounter for screening for malignant neoplasm of colon (principal); D12.8 Benign neoplasm of rectum; E03.9 Hypothyroidism, unspecified; J45.909 Unspecified asthma, uncomplicated; F41.9 Anxiety disorder, unspecified; N80.9 Endometriosis, unspecified; M47.895 Other spondylosis, thoracolumbar region; M85.88 Other specified disorders of bone density and structure, other site; E66.9 Obesity, unspecified; Z68.36 Body mass index [BMI] 36.0-36.9, adult; Z79.1 Long term (current) use of non-steroidal anti-inflammatories (NSAID); Z79.51 Long term (current) use of inhaled steroids; Z79.890 Hormone replacement therapy; Z98.890 Other specified postprocedural states; Z87.442 Personal history of urinary calculi; Z87.42 Personal history of other diseases of the female genital tract; Z80.3 Family history of malignant neoplasm of breast; Z82.49 Family history of ischemic heart disease and other diseases of the circulatory system
CPT/HCPCS: 45385; 88305; J2003; J2704; J7120

== ENCOUNTER 2024-07-27 14:26 | Outpatient (CLI) | payer OTHER, SELFPAY ==
--- NOTE | ~2024-07-27 | MM_ITS ---
EXAMINATION: MM screening ismael BI w dashawn HISTORY: Screening mammogram, family history of breast cancer in her mother. TECHNIQUE: Craniocaudal and mediolateral oblique 3-D tomosynthesis images were obtained and synthetic 2-D images were generated. CAD analysis was submitted and interpreted. COMPARISON: 07/23/2023, 07/31/2022, 05/16/2021 BREAST PARENCHYMAL COMPOSITION:Not Dense. There are scattered areas of fibroglandular density. FINDINGS: No suspicious mass, calcification, or architectural distortion are identified in either ta ast to suggest malignancy. There has been no suspicious interval change. IMPRESSION: No mammographic evidence of malignancy. Recommend routine screening mammography in one year. BI-RADS Category 1: Negative Reviewed, dictated and finalized at location .
--- OUTSIDE RECORDS SUMMARY | 2024-07-27 15:59 | XMS_ITS | Encounter Summary ---
Author Organization [facility] Address [address] [place] [address] Care Team Providers Care Internal Review And Audit Compliance Name Role Phone Chucho Martin MD Primary Care Provider [phone] Encounter Details Date Type Department Care Team (Late st Contact Info) Description 04/14/[address] [facility] - DermPath Lab [address] [place] [address] Janel Menchaca DO [address] [facility] [address] [place] [address] Social History Tobacco Use Types Packs/Day Years Used Date Smoking Tobacco: Never Smokeless Tobacco: Never Comments No Sex and Gender Information Value Date Recorded Sex Assigned at Not on file Legal Sex Female 11:25 AM CDT Gender Identity Not on file Sexual Orientation Not on file documented as of this encounter Plan of Treatment Not on file documented as of this encounter Procedures Procedure Name Priority Date/Time Associated Diagnosis Comments DERMATOPATHOLOGY Routine 04/14/2024 10:3 5 AM PATIENT ACCESS MANAGER documented in this encounter Results * DERMATOPATHOLOGY (04/14/2024 10:35 AM PATIENT ACCESS MANAGER) Case Report Dermatopathology Report Case: [id number] Authorizing Provider: Janel Menchaca DO Collected: 04/14/2024 10:35 AM Ordering Location: [facility] - Received: 04/15/2024 09:24 AM DermPath Lab Pathologist: Candi Lino MD Specimen: Skin, left wrist 3:23 PM PATIENT ACCESS MANAGER DERMATOPATHOLOGY LABORATORY Final Diagnosis Specimen A. SKIN, left wrist: FRAGMENTS OF EPIDERMIS (D23.9) (see microscopic description) 3:23 PM [facility] DERMATOPATHOLOGY [facility]ORATORY Clinical History DF vs Nevus R/O NMSC 3:23 PM [facility] DERMATOPATHOLOGY [facility] Gross Description Specimen A: Received is one formalin filled container labeled with the patient's name and designated left wrist. The specimen consists of a shave biopsy measuring 5x3x1 mm. Jar 0. 3:23 PM [facility] DERMATOPATHOLOGY [facility]ORATORY Microscopic Description Specimen A. SKIN, left wrist: There are fragments of squamous epithelium without evidence of epithelial dysplasia or malignancy. There is minimal dermis present for evaluation. Additional deeper sections were obtained and reviewed. 3:23 PM [facility] DERMATOPATHOLOGY [facility]ORATORY Disclaimer An external and internal positive and negative controls are appropriate for the histochemical, immunohistochemical and immunofluorescence stain(s) in this case (if any), except where stated explicitly. The performance characteristics of the stain(s) cited in this report were developed and its performance characteristic determined by the Dermatopathology Laboratory at [facility], directed by Dr. Zach Lino. These tests need not be, and therefore are not, approved by the [place] Food and Drug Administration. The tests are used for clinical purposes. Billing Codes Specimen Charges Stain Charges 34641 1 3:23 PM PATIENT ACCESS MANAGER DERMATOPATHOLOGY LABORATORY Embedded Images 3:23 PM [facility] DERMATOPATH[facility]Y [facility]ATORY Pathology/Cytolo gy TISSUE SPECIMEN FROM SKIN / Unknown 04/14/2024 10:35 AM PATIENT ACCESS MANAGER 04/15/2024 9:24 AM PATIENT ACCESS MANAGER us Janel Menchaca DO LAB - PATHOLOGY/CYTOLOGY ORDERABLES Final Result DERMATOPATHOLOGY LABORATORY [facility] - Department of Dermatology [facility] Medicine [address] [place] [address], [address] [place] [address], [facility] [phone] documented in this encounter Visit Diagnoses Not on filedocumented in this encounter Care Teams Internal Review And Audit Compliance Relationship Specialty Start Date End Date Chucho Martin MD [address] [place] [address] PCP - General Family Medicine 06/29/17 documented as of this encounter
--- OUTSIDE RECORDS SUMMARY | 2024-07-27 15:59 | XMS_ITS | Encounter Summary ---
Author Organization [facility] Address [address] [place] [address] Care Team Providers Care Record Searcher Name Role Phone Unavailable Primary Care Provider [...] on file Legal Sex Female 4:46 AM INTEGRITY MANAGER Gender Identity Not on file Sexual Orientation Not on file documented as of this encounter Plan of Treatment Not on file documented as of this encounter Visit Diagnoses Not on filedocumented in this encounter
--- OUTSIDE RECORDS SUMMARY | 2024-07-27 15:59 | XMS_ITS | Clinical Summary ---
Author Organization [facility] Address [address] [place] [address] Care Team Providers Care Word Processing Specialist Name Role Phone Chucho Martin MD Primary Care Provider [phone] Source Comments [facility],non-owned Affiliates and Associated Physician Practices is amultiple site organization consisting of ambulatory clinics and hospital sitesin [place], [place], [place] and [place]. This disclosure is being madepursuant to the Care Everywhere program and may not contain all information available regarding this patient. Last updated 17.[facility] Allergies Active Allergy Reactions Criticality Noted Date Comments Clindamycin GI Discomfort 06/29/2017 Medications * Be aware that medications may not be up to date on this document. Alwaysverify current medications with the patient. levothyroxine (SYNTHROID) 88 MCG tablet Take 88 [...] 6 hours as needed for Pain Active HYDROcodone-baldomero taminophen (NORCO) 5-325 MG tablet Take 1 tablet by mouth every 4 hours as needed for Pain Active Escitalopram Oxalate (LEXAPRO PO) Active MELATONIN PO Active Social History Tobacco Use Types Packs/Day Years Used Date Smoking Tobacco: Never Smokeless Tobacco: Never Comments No Sex and Gender Information Value Date Recorded Sex Assigned at Not on file Legal Sex Female 11:25 AM CDT Gender Identity Not on file Sexual Orientation Not on file Last Filed Vital Signs Vital Sign Reading Time Taken Comments Blood Pressure 118/80 03/17/2019 9:05 AM MANAGER FIELD Pulse 81 03/17/2019 9:05 AM MANAGER FIELD Temperature 37.2 C (99 F) 03/17/2019 9:05 AM MANAGER FIELD Respiratory Rate 16 03/17/2019 9:05 AM MANAGER FIELD Oxygen Saturation 97% 03/17/2019 9:05 AM MANAGER FIELD Inhaled Oxygen Concentration - - Weight 86.2 kg (190 lb) 03/17/2019 9:05 AM MANAGER FIELD Height 165.1 cm (5' 5 ) 03/17/2019 9:05 AM MANAGER FIELD Body Mass Index 31.62 03/17/2019 9:05 AM MANAGER FIELD Plan of Treatment Health Maintenance Due Date [...] VACCINE ( - 2023-2 5 season) 2023 DEPRESSION SCREENING 03/31/2024 INFLUENZA VACCINE (Season Ended) 2024 ZOSTER VACCINE (1 of 2) 2026 HIB [...] on patient's age to complete this topic Insurance AET[employer] AETNA SELF PAY NO INSURANCE Member Subscriber Plan / Payer (Ef fective for All Dates) Name:Elsy Wylie Member ID:Not on file Relation to Subscriber:Not on file Name:ELSY WYLIE Subscriber ID:Not on file (Home) Address: [address] [place] [address] Payer ID:Not on file Group ID:Not on file Type:Self Pay Address: [place], [place] Care Teams Word Processing Specialist Relationship Specialty Start Date End Date Chucho Martin MD [address] [place] [address] PCP - General Family Medicine 06/29/17
--- OUTSIDE RECORDS SUMMARY | 2024-07-27 15:59 | XMS_ITS | Clinical Summary ---
Author Organization [facility] Address [address] Malagonn: Epic Prelude ADT [place] [address] Care Team Providers Care Coal Chemist Name Role Phone Unavailable Primary Care Provider Unavailabl e Social History Tobacco Use Types Packs/Day Years Used Date Smoking Tobacco: Never Assessed Comments Unknown Sex and Gender Information Value Date Recorded Sex Assigned at Not on file Legal Sex Female 4:46 AM CHARTERED FINANCIAL ANALYST Gender Identity Not on file Sexual Orientation Not on file Plan of Treatment Health Maintenance Due Date Last Done Comments DTAP/TDAP/TD VACCINES (1 - Tdap) 09/24/1995 HEPATITIS B VACCINES (1 of 3 - 19+ 3-dose series) 08/30 HPV/Cotest (21-29) 1997 CERVICAL CANCER SCREENING 2006 HPV/Cotest (30-65) 2006 PAP SMEAR 2006 BREAST CANCER SCREENING 2016 COLORECTAL SCREENING 2021 Colorectal Cancer Screening 2021 FIT-DNA Q 3 years 2021 FIT/FOBT Q 1 year 2021 Flex Sig/CT Colonography Q 5 years 2021 INFLUENZA VACCINE (#1) 2023
== END 2024-07-27 14:27 | disposition home or self-care (01) ==
PROVIDERS: PCP Family Medicine; Visit Provider Nurse Practitioner Obstetrics & Gynecology
DX: Z12.31 Encounter for screening mammogram for malignant neoplasm of breast (principal)
CPT/HCPCS: 77063; 77067

== ENCOUNTER 2024-11-09 09:37 | Outpatient (CLI) | payer OTHER, SELFPAY ==
--- OUTSIDE RECORDS SUMMARY | 2024-11-09 10:10 | XMS_ITS | Encounter Summary ---
Author Organization [facility] Address [address] [place] [address] Care Team Providers Care Grocery Stocker Name Role Phone Unavailable Primary Care Provider [...] on file Legal Sex Female 4:46 AM CASTING DIRECTOR Gender Identity Not on file Sexual Orientation Not on file documented as of this encounter Plan of Treatment Not on file documented as of this encounter Visit Diagnoses Not on filedocumented in this encounter
--- OUTSIDE RECORDS SUMMARY | 2024-11-09 10:10 | XMS_ITS | Clinical Summary ---
Author Organization [facility] Address [address] [place] [address] Phone Care Team Providers Care Rubbing Bed Operator Name Role Phone Provider, Unknown Primary Care [...] on file Legal Sex Female 3:02 AM ADVENTURE CHALLENGE INSTRUCTOR Gender Identity Not on file Sexual Orientation Not on file Last Filed Vital Signs Vital Sign Reading Time Taken Comments Blood Pressure 110/80 05/23/2010 11:01 AM ADVENTURE CHALLENGE INSTRUCTOR Pulse 84 05/23/2010 11:01 AM ADVENTURE CHALLENGE INSTRUCTOR Temperature 36.6 C (97.9 F) 05/23/2010 11:01 AM ADVENTURE CHALLENGE INSTRUCTOR Respiratory Rate 16 05/23/2010 11:01 AM ADVENTURE CHALLENGE INSTRUCTOR Oxygen Saturation 98% 05/23/2010 11:01 AM ADVENTURE CHALLENGE INSTRUCTOR Inhaled Oxygen Concentration - - Weight 71.2 kg (157 lb) 05/23/2010 11:01 AM ADVENTURE CHALLENGE INSTRUCTOR Height 166.4 cm (5' 5.5) 05/23/2010 11:01 AM CS T Body Mass Index 25.73 05/23/2010 11:01 AM ADVENTURE CHALLENGE INSTRUCTOR Plan of Treatment Health Maintenance Due Date Last Done Comments Hepatitis C Virus (HCV) Screening 1976 TdaP Immunization 1976 Hepatitis B Immunization (1 of 3 - 19+ 3-dose series) 09/24/1995 HPV/Cotest 2006 Cervical Cancer Screening (CCS) 10/24/2012 Pap Smear 10/24/2012 10/24/2009, 07/21/2007 Cologuard 2021 Colonoscopy 2021 Colorectal Cancer Screening 2021 Immunochemical Fecal Occult Blood 2021 SARS-COV-2 Immunization (2023- season) 2023 Influenza Immunization (#1) 2024 Respiratory Syncytial Virus (RSV) Immunization (Adult) (1 - 1-dose 75+ series) 09/24/2051 Human Papillomavirus (HPV) Immunization Aged Out No longer eligible b ased on patient's age to complete this topic Meningococcal Immunization (ACWY) Aged Out No longer eligible b ased on patient's age to complete this topic Pneumococcal Immunization Combined Aged Out No longer eligible b ased on patient's age to complete this topic Rotavirus Immunization Aged Out No lo nger eligible based on patient's age to complete this topic Medical Devices Implanted Type Area Shop Manager Device Identifier Shelf Expiration Date Model / Serial / Lot Sling System Single Incision Mini Arc - [id number] Implanted:Qty: 1 on 02/20/2010 at [facility] IMPLANT Urethra [employer] 10/09/2012 [id number] / / [id number] Description:Mini Arc Sling S ystem Procedures Procedure Name Priority Date/Time Associated Diagnosis Comments PATHOLOGY CYTOLOGY STADIUM ATTENDANT Routine 10/24/2009 9:41 PM CDT from Last 3 Months or Most Recently Relevant to Health Maintenance Results * PATHOLOGY CYTOLOGY STADIUM ATTENDANT (10/24/2009 9:41 PM CDT) 10/24/2009 9:41 PM CDT 10/24/2009 9:41 PM CDT Narrative [facility] - 10/31/2009 10:06 AM CDT CYTOPATHOLOGY REPORT: Patient Name: ELSY CHING Gender: F Location: [facility] Case #: [id number] Collect Date: 10/24/2009 Received: 10/24/2009 Reported: 10/31/2009 Final Cytologic Diagnosis: Vaginal/Cervical/Endocervical, liquid based thin layer preparation (Thin Prepe): Satisfactory for evaluation. Endocervical/transformation zone cellular component noted. NEGATIVE FOR INTRAEPITHELIAL LESIONS OR MALIGNANCY No dysplastic squamous cells identified. Analysis of this sample has been assisted by an automated imaging and review system ([employer] System, [employer], [facility], [place]). The case is further evaluated and finalized by a food safety scientist and/or pathologist. Electronically Signed Out By [id number] The PAP smear is a preliminary screening [...] should be followed up. us Liudmila Neumann APRN, CNP PATHOLOGY/CYTOLOGY ORD ERABLES Final Result [facility] [address] [place] [address] from Last 3 Months or Most Recently Relevant to Health Maintenance Insurance [facility] Care Teams Rubbing Bed Operator Relationship Specialty Start Date End Date Provider, Unknown UNKNOWN PCP - General 04/29/18
--- OUTSIDE RECORDS SUMMARY | 2024-11-09 10:10 | XMS_ITS | Clinical Summary ---
Author Organization [facility] Address [address] Malagonn: Epic Prelude ADT [place] [address] Care Team Providers Care Straw Hat Brim Cutter Operator Name Role Phone Unavailable Primary Care Provider Unavailabl e Social History Tobacco Use Types Packs/Day Years Used Date Smoking Tobacco: Never Assessed Comments Unknown Sex and Gender Information Value Date Recorded Sex Assigned at Not on file Legal Sex Female 4:46 AM LEAD SYSTEMS ANALYST Gender Identity Not on file Sexual [...] Q 5 years 2021 INFLUENZA VACCINE (#1) 2024
--- OUTSIDE RECORDS SUMMARY | 2024-11-09 10:10 | XMS_ITS | Clinical Summary ---
Author Organization [facility] Address [address] [place] [address] Care Team Providers Care Diamond Cutter Name Role Phone Chucho Martin MD Primary Care Provider [phone] Source Comments [facility] [employer],non-owned Affiliates and Associated Physician Practices is amultiple site organization consisting of ambulatory clinics and hospital sitesin [place], [place], [place] and [place]. This disclosure is being madepursuant to the Care Everywhere program and may not contain all information available regarding this patient. Last updated 17.[facility] Allergies Active Allergy Reactions Criticality Noted Date [...] Comments Blood Pressure 118/80 03/17/2019 9:05 AM AMUSEMENT PARK RIDE MECHANIC Pulse 81 03/17/2019 9:05 AM AMUSEMENT PARK RIDE MECHANIC Temperature 37.2 C (99 F) 03/17/2019 9:05 AM AMUSEMENT PARK RIDE MECHANIC Respiratory Rate 16 03/17/2019 9:05 AM AMUSEMENT PARK RIDE MECHANIC Oxygen Saturation 97% 03/17/2019 9:05 AM AMUSEMENT PARK RIDE MECHANIC Inhaled Oxygen Concentration - - Weight 86.2 kg (190 lb) 03/17/2019 9:05 AM AMUSEMENT PARK RIDE MECHANIC Height 165.1 cm (5' 5) 03/17/2019 9:05 AM AMUSEMENT PARK RIDE MECHANIC Body Mass Index 31.62 03/17/2019 9:05 AM AMUSEMENT PARK RIDE MECHANIC Plan of Treatment Health Maintenance Due Date Last Done Comments COLOGUARD (AGES 45-75) - COL ON CA SCREENING 1976 COLON MONITORING 1976 COLONOSCOPY - COLON CA SCREENING 1976 CT COLONOGRAPHY - COLON CA SCREENING 1976 Colorectal Cancer Screening 1976 FIT - COLON CA SCREENING 1976 FLEX SIG - COLON CA SCREENING 1976 LIPID TESTING 1976 MAMMOGRAM 1976 HIV SCREENING 09/24/1991 HEPATITIS C SCREENING 09/19/1994 DTAP/TDAP/TD VACCINES (1 - Tdap) 09/24/1995 HEPATITIS B VACCINE (1 of 3 - 19+ 3-dose series) 09/24/1995 PAP SMEAR 1997 SCREENING FOR DIABETES 03/17/2019 COVID-19 VACCINE (1 - 2023-2 5 season) 2023 DEPRESSION SCREENING 03/31/2024 INFLUENZA VACCINE (#1) 2024 ZOSTER VACCINE (1 of 2) 2026 [...] file (Home) Address: [address] [place] [address] Payer ID:Not on file Group ID:Not on file Type:Self Pay Address: [place], [place] Care Teams Diamond Cutter Relationship Specialty Start Date End Date Chucho Martin MD [address] [place] [address] PCP - General Family Medicine 06/29/17
--- OUTSIDE RECORDS SUMMARY | 2024-11-09 10:10 | XMS_ITS | Encounter Summary ---
Author Organization 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 Role Phone Chucho Martin MD Primary Care Provider [phone] Encounter Details Date Type Department Care Team (Late st Contact Info) Description 04/14/2024 Lab Requisition [facility] - DermPath Lab [address] [place] [address] Janel Menchaca DO [address] [facility] [address] [place] [address] Social History Tobacco Use Types Packs/Day Years [...] Comments DERMATOPATHOLOGY Routine 04/14/2024 10:3 5 AM [facility] documented in this encounter Results * DERMATOPATHOLOGY (04/14/2024 10:35 AM [facility]) Case Report Dermatopathology Report Case: [id number] Authorizing Provider: Janel Menchaca DO Collected: 04/14/2024 10:35 AM Ordering Location: [facility] - Received: 04/15/2024 09:24 AM DermPath Lab Pathologist: Candi Lino MD Specimen: Skin, left wrist 3:23 PM [facility] DERMATOPATHOLOGY LABORATORY Final Diagnosis Specimen A. SKIN, left wrist: FRAGMENTS OF EPIDERMIS (D23.9) (see microscopic description) 3:23 PM [facility] DERMATOPATHOLOGY LABORATORY at 1523 [facility] Clinical History DF vs Nevus R/O NMSC 3:23 PM [facility] DERMATOPATHOLOGY LABORATORY Gross Description Specimen A: Received is one formalin filled container labeled with the patient's name and designated left wrist. The specimen consists of a shave biopsy measuring 5x3x1 mm. Jar 0. 3:23 PM [facility] DERMATOPATHOLOGY LABORATORY Microscopic Description Specimen A. SKIN, left wrist: There are fragments of squamous epithelium without evidence of epithelial dysplasia or malignancy. There is minimal dermis present for evaluation. Additional deeper sections were obtained and reviewed. 3:23 PM [facility] DERMATOPATHOLOGY LABORATORY Disclaimer An external and internal positive and negative controls are appropriate for the histochemical, immunohistochemical and immunofluorescence stain(s) in this case (if any), except where stated explicitly. The performance characteristics of the stain(s) cited in this report were developed and its performance characteristic determined by the Dermatopathology Laboratory at [facility], directed by Dr. Zach Lino. These tests need not be, and therefore are not, approved by the [place] Food and Drug Administration. The tests are used for clinical purposes. Billing Codes Specimen Charges Stain Charges 18591 1 3:23 PM [facility] DERMATOPATHOLOGY LABORATORY Embedded Images 3:23 PM [facility] DERMATOPATHOLOGY LABORATORY Pathology/Cytolo gy TISSUE SPECIMEN FROM SKIN / Unknown 04/14/2024 10:35 AM [facility] 04/15/2024 9:24 AM [facility] us Janel Menchaca DO LAB - PATHOLOGY/CYTOLOGY ORDERABLES Final Result DERMATOPATHOLOGY LABORATORY [facility] - Department of Dermatology [facility] Medicine [address] [place] [address], [address] [place] [address], [facility] [phone] documented in this encounter Visit Diagnoses Not on filedocumented in this encounter 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
== END 2024-11-09 09:38 | disposition home or self-care (01) ==
LOC: ANHAUDIO 09:37
PROVIDERS: PCP Family Medicine; Visit Provider Otolaryngology
DX: H91.93 Unspecified hearing loss, bilateral (principal)
CPT/HCPCS: 92557; 92567

== ENCOUNTER 2024-12-22 09:56 | Outpatient (CLI) | payer OTHER, SELFPAY ==
--- NOTE | ~2024-12-22 | XR_ITS ---
EXAMINATION: XR hip BI 2V w AP pelvis, 12/22/2024 10:10 CDT HISTORY: CHRONIC RT LT LATERAL HIP PAIN; WORSE RT HIP COMPARISON: No comparisons available. Findings: No acute fracture or malalignment. No significant degenerative changes. Soft tissues unremarkable. Impression: No acute fracture or malalignment. Reviewed, dictated and finalized at location A. Impression: No acute fracture or malalignment.
== END 2024-12-22 09:57 | disposition home or self-care (01) ==
LOC: MICIMG 09:57
PROVIDERS: PCP Family Medicine; Visit Provider Physician Assistant
DX: M25.551 Pain in right hip (principal); M25.552 Pain in left hip
CPT/HCPCS: 73521